=== PATIENT | female | born 1980 | race Caucasian/White ===

== ENCOUNTER → 2017-12-05 | Outpatient (CLI) | payer BC ==
[~2017-12-05] MED LIST: METR500T PO; PREN-153 OR; SUMA100T2 PO
[2017-12-05 11:29] LABS: Basophils # (auto) 0 uL; Basophils % (auto) 0.4 % (0.0-2.0); Eosinophils # (auto) 0 uL; Eosinophils % (auto) 0.8 % (0.0-7.0); Hematocrit 43.4 % (36.0-46.0); Hemoglobin 14.5 g/dL (12.2-16.2); Lymphocytes # (auto) 2.1 uL; Lymphocytes % (auto) 35.7 % (10.0-50.0); Mean Corpuscular Hemoglobin 30.4 pg (28.0-32.0); Mean Corpuscular Hgb Conc. 33.3 g/dL (32.0-36.0); Mean Corpuscular Volume 91.3 fL (80.0-100.0); Monocytes # (auto) 0.3 uL; Monocytes % (auto) 5.1 % (0.0-12.0); Neutrophils # (auto) 3.5 uL; Platelet Count (auto) 319 10^3/uL (140-450); Red Blood Cells 4.75 10^6/uL (4.0-5.20); Red Cell Distribution Width 12.4 % (11.8-14.3)
[2017-12-05 12:33] LABS: BUN/Creatinine Ratio 22.9; Bilirubin, Total 0.9 mg/dL (0.2-1.0); Potassium 4.4 mmol/L (3.5-5.1); Total Protein 7.7 g/dL (6.4-8.2)
[2017-12-05 12:36] LABS: Beta HCG, Quantitative < 1 mlU/mL (1-3); Thyroid Stimulating Hormone 1.43 uIU/mL (0.358-3.74)
== END | disposition home or self-care (01) ==
LOC: LAB 09:56
PROVIDERS: ATTEND Internal Medicine
DX: Z00.01 Encounter for general adult medical examination with abnormal findings (principal); R73.09 Other abnormal glucose
CPT/HCPCS: 36415; 80053; 80061; 82306; 83036; 84443; 84702; 85025

== ENCOUNTER 2018-06-16 04:51 | Emergency (ER) | payer BC ==
[~2018-06-16] VITALS: Ht 157.5 cm; Wt 68.0 kg
[2018-06-16] MEDS ORDERED: ONDANSETRON HCL 4 MG/2 ML VIAL ONE (05:15)
[2018-06-16] MEDS ORDERED: SODIUM CHLORIDE 0.9% 1,000 ML IV ONE (05:15)
[2018-06-16] MEDS ORDERED: ONDANSETRON HCL 4 MG/2 ML VIAL IV ONE (05:15)
[2018-06-16] MEDS ORDERED: DIPHENOXYLATE W/ATROPINE 2.5 MG TAB PO ONE ×2 (05:45→07:45)
[2018-06-16 05:49] LABS: Basophils # (auto) 0 uL; Basophils % (auto) 0.2 % (0.0-2.0); Eosinophils # (auto) 0.3 uL; Eosinophils % (auto) 3.3 % (0.0-7.0); Hematocrit 41.7 % (36.0-46.0); Hemoglobin 13.9 g/dL (12.2-16.2); Lymphocytes # (auto) 1.9 uL; Lymphocytes % (auto) 23.1 % (10.0-50.0); Mean Corpuscular Hemoglobin 30.7 pg (28.0-32.0); Mean Corpuscular Hgb Conc. 33.3 g/dL (32.0-36.0); Mean Corpuscular Volume 92.2 fL (80.0-100.0); Monocytes # (auto) 0.6 uL; Monocytes % (auto) 7.6 % (0.0-12.0); Neutrophils # (auto) 5.3 uL; Neutrophils % (auto) 65.8 % (37.0-80.0); Nucleated Red Blood Cells % 0.1 %; Platelet Count (auto) 301 10^3/uL (140-450); Red Blood Cells 4.52 10^6/uL (4.0-5.20); Red Cell Distribution Width 12.3 % (11.8-14.3); White Blood Cell 8.1 10^3/uL (4.4-10.8)
[2018-06-16 05:57] LABS: Calcium 8.4 mg/dL (8.5-10.1); Magnesium 2.3 mg/dL (1.6-2.6); Potassium 3.8 mmol/L (3.5-5.1)
[2018-06-16 06:03] LABS: Bilirubin, Total 0.7 mg/dL (0.2-1.0); INR 0.88 (0.9-1.15); Prothrombin Time 9.5 sec (9.27-12.13); Total Protein 7.6 g/dL (6.4-8.2)
[2018-06-16 06:11] LABS: Urine Bacteria FEW /hpf (None Seen); Urine Blood Negative /uL (Negative); Urine Mucus FEW (None Seen); Urine Specific Gravity 1.027 (1.001-1.035); Urine WBC 1 /hpf (0 - 5)
[2018-06-16 08:30] VITALS: BP 105/72
== END 2018-06-16 08:45 | disposition home or self-care (01) ==
LOC: ER 04:51
DX: K52.9 Noninfective gastroenteritis and colitis, unspecified (principal); Z88.6 Allergy status to analgesic agent
CPT/HCPCS: 36415; 74176; 80053; 81001; 81025; 82150; 83690; 83735; 85025; 85610; 85730; 96361; 96374; 99284; J2405; J7030

== ENCOUNTER 2019-01-26 08:04 | Emergency (ER) | payer BC ==
[~2019-01-26] VITALS: Ht 157.5 cm; Wt 74.8 kg
[2019-01-26] MEDS ORDERED: KETOROLAC TROMETH 30 MG/ML 1ML VIAL IV ONE (09:00)
[2019-01-26] MEDS ORDERED: SODIUM CHLORIDE 0.9% 1,000 ML IV ONE (09:00)
[2019-01-26] MEDS ORDERED: diphenhdrAMINE HCL 50 MG/1 ML VL IV ONE (09:00)
[2019-01-26] MEDS ORDERED: METOCLOPRAMIDE HCL 5MG/ml INJ 2ml VIAL IV ONE (09:00)
[2019-01-26 10:17] VITALS: BP 100/58
== END 2019-01-26 10:20 | disposition home or self-care (01) ==
LOC: ER 08:04
DX: G43.909 Migraine, unspecified, not intractable, without status migrainosus (principal); R11.2 Nausea with vomiting, unspecified; R42 Dizziness and giddiness
CPT/HCPCS: 96361; 96374; 96375; 99283; J1200; J1885; J2765; J7030

== ENCOUNTER 2019-02-05 05:54 | Emergency (ER) | payer BC ==
[~2019-02-05] VITALS: Ht 157.5 cm; Wt 68.0 kg
[2019-02-05 06:15] VITALS: BP 116/68
[2019-02-05 06:26] LABS: Urine Bacteria MOD /hpf (None Seen); Urine Blood 2+ /uL (Negative); Urine Specific Gravity 1.017 (1.001-1.035); Urine WBC 348 /hpf (0 - 5)
[2019-02-05] MEDS ORDERED: PHENAZOPYRIDINE HCL 100 MG TAB PO ONE (07:15)
[2019-02-05] MEDS ORDERED: cefTRIAXone SOD 1,000 MG VL IM ONE (07:15)
== END 2019-02-05 07:56 | disposition home or self-care (01) ==
LOC: ER 05:54
DX: N39.0 Urinary tract infection, site not specified (principal); Z88.8 Allergy status to other drugs, medicaments and biological substances
CPT/HCPCS: 81001; 96372; 99283; J0696

== ENCOUNTER 2019-03-26 14:58 | Inpatient (IN) | payer BC ==
[~2019-03-26] VITALS: Ht 157.5 cm; Wt 87.3 kg
[2019-03-26] MEDS ORDERED: PANTOPRAZOLE 40 MG TAB PO ONE (15:15)
[2019-03-26] MEDS ORDERED: ONDANSETRON ODT 4 MG TAB PO ONE (15:15)
[2019-03-26 15:44] LABS: Partial Thromboplastin Time 22.4 sec (23.64-32.05)
[2019-03-26 15:45] LABS: Basophils # (auto) 0.1 uL; Basophils % (auto) 0.6 % (0.0-2.0); Eosinophils # (auto) 0 uL; Eosinophils % (auto) 0.1 % (0.0-7.0); Hematocrit 40.7 % (36.0-46.0); Hemoglobin 13.3 g/dL (12.2-16.2); Lymphocytes # (auto) 2.2 uL; Lymphocytes % (auto) 14.7 % (10.0-50.0); Mean Corpuscular Hemoglobin 30.3 pg (28.0-32.0); Mean Corpuscular Hgb Conc. 32.7 g/dL (32.0-36.0); Mean Corpuscular Volume 92.5 fL (80.0-100.0); Monocytes # (auto) 0.6 uL; Monocytes % (auto) 4.1 % (0.0-12.0); Neutrophils # (auto) 12.1 uL; Neutrophils % (auto) 80.5 % (37.0-80.0); Nucleated Red Blood Cells % 0.1 %; Platelet Count (auto) 351 10^3/uL (140-450); Red Cell Distribution Width 12.3 % (11.8-14.3)
[2019-03-26 15:51] LABS: Anion Gap 7 (5-15); Blood Urea Nitrogen 35 mg/dL (7-18); Carbon Dioxide 21 mmol/L (21-32); Chloride 110 mmol/L (98-107); Glucose 103 mg/dL (74-106); Potassium 4.5 mmol/L (3.5-5.1); Sodium 138 mmol/L (136-145)
[2019-03-26 15:58] LABS: Alanine Aminotransferase 27 U/L (13-56); Alkaline Phosphatase 69 U/L (45-117); Aspartate Aminotransferase 12 U/L (15-37); BUN/Creatinine Ratio 48.6; Bilirubin, Total 1.1 mg/dL (0.2-1.0); GFR African American 118 mL/min; GFR Non-African American 97 mL/min; Total Protein 7.4 g/dL (6.4-8.2)
[2019-03-26] MEDS ORDERED: ONDANSETRON HCL 4 MG/2 ML VIAL IV ONE (16:00)
[2019-03-26] MEDS ORDERED: PANTOPRAZOLE 40 MG/10 ML VIAL INJ IV ONE ×2 (16:00→19:00)
[2019-03-26] MEDS ORDERED: cefTRIAXone 1GM/50ML D5W 50 ML IV ONE (16:15)
[2019-03-26] MEDS ORDERED: SODIUM CHLORIDE 0.9% 1,000 ML IV ONE ×2 (16:26)
[2019-03-26 16:36] LABS: Urine Bacteria NONE SEEN /hpf (None Seen); Urine Blood Negative /uL (Negative); Urine Mucus FEW (None Seen); Urine Specific Gravity 1.024 (1.001-1.035); Urine WBC 1 /hpf (0 - 5)
[2019-03-26] MEDS ORDERED: PANTOPRAZOLE 80 MG in SODIUM CHL 0.9% 60 ML IV ONE (18:15)
[2019-03-26] MEDS ORDERED: TEMAZEPAM 15 MG CAP PO PRN (19:00)
[2019-03-26] MEDS ORDERED: PROMETHAZINE HCL 25 MG/ML 1ML IV PRN (19:00)
[2019-03-26] MEDS ORDERED: MORPHINE SULF INJ 2 MG/ML SYRINGE 1ML IV PRN (19:00)
[2019-03-26] MEDS ORDERED: NITROGLYCERIN 0.4 MG SL TAB SL PRN (19:00)
[2019-03-26] MEDS: SODIUM CHLORIDE 0.9% 1,000 ML IV SCH (19:48)
--- NOTE | 2019-03-26 20:52 | NUR ---
Telemetry admit from ER ROONEYSHAE CLARKE admitted to Telemetry unit. Patient oriented to AMY CHONG RN primary RN, unit, room, bed, and unit policies regarding patient care and visiting hours. Patient now on continuous telemetry monitoring, tele box #50 and telemetry reading on arrival to unit is sinus tachycardia. Patient weighed by bedscale and encouraged to call if they need something. All questions and concerns addressed, patient verbalized understanding. Will continue to monitor every hour and as needed.
[2019-03-26 21:22] VITALS: BP 116/76
[2019-03-26] MEDS ORDERED: PANTOPRAZOLE 40 MG TAB PO SCH (22:00)
[2019-03-26] MEDS: CEFOTETAN 1GM/D5W 50ML BAG 50 ML IV SCH (22:19)
[2019-03-27 00:38] LABS: Hematocrit 29.9 % (36.0-46.0); Hemoglobin 10.5 g/dL (12.2-16.2)
[2019-03-27] MEDS: ACETAMINOPHEN 500 MG TAB PO PRN ×2 (04:48→21:42)
[2019-03-27 05:21] VITALS: BP 111/66
[2019-03-27 05:38] LABS: Basophils # (auto) 0 uL; Basophils % (auto) 0.2 % (0.0-2.0); Eosinophils # (auto) 0 uL; Eosinophils % (auto) 0.5 % (0.0-7.0); Hematocrit 30.5 % (36.0-46.0); Hemoglobin 10.3 g/dL (12.2-16.2); Lymphocytes # (auto) 2.1 uL; Lymphocytes % (auto) 26.4 % (10.0-50.0); Mean Corpuscular Hemoglobin 31.3 pg (28.0-32.0); Monocytes # (auto) 0.5 uL; Monocytes % (auto) 6.1 % (0.0-12.0); Neutrophils # (auto) 5.4 uL; Neutrophils % (auto) 66.8 % (37.0-80.0); Nucleated Red Blood Cells % 0.1 %; Platelet Count (auto) 244 10^3/uL (140-450); Red Blood Cells 3.31 10^6/uL (4.0-5.20); Red Cell Distribution Width 12.3 % (11.8-14.3); White Blood Cell 8.1 10^3/uL (4.4-10.8)
[2019-03-27] MEDS: SODIUM CHLORIDE 0.9% 1,000 ML IV SCH ×3 (05:40→22:30)
--- NOTE | 2019-03-27 07:44 | NUR ---
Opening Shift Note: Assumed care of patient, awake and alert. No S/S of distress/SOB. Patient states pain level of 4/10. Bed in lowest locked position, side rails up x 2, call light within reach. Patient independently ambulated to the bathroom at this time. Patient instructed on POC and to call for assist PRN, will continue to monitor for changes Q1hr and PRN.
[2019-03-27 08:28] VITALS: BP 103/66
[2019-03-27] MEDS: CEFOTETAN 1GM/D5W 50ML BAG 50 ML IV SCH (09:51)
[2019-03-27] MEDS: traMADol HCL 50 MG TAB PO PRN ×2 (09:56→20:24)
--- NOTE | 2019-03-27 11:17 | NUR ---
Dr. Pope at bedside. Discussed POC with patient. Patient verbally agreed.
--- NOTE | 2019-03-27 12:01 | NUR ---
Orders to obtain consents for procedure with Dr. Pope. Patient signed and verbalized understanding of procedure. Will continue to monitor patient.
[2019-03-27 12:06] LABS: Hematocrit 30.5 % (36.0-46.0); Hemoglobin 10.3 g/dL (12.2-16.2)
--- NOTE | 2019-03-27 12:20 | NUR ---
Dr. Randle at bedside. Discussed POC with patient. Patient verbally agreed. Will continue to monitor.
[2019-03-27] MEDS ORDERED: LIDOCAINE VISCOUS 2% 15ML UD ONE (12:31)
[2019-03-27] MEDS ORDERED: SODIUM CHLORIDE LOCK 0 ML ONE (12:31)
[2019-03-27] MEDS ORDERED: diphenhdrAMINE HCL 50 MG/1 ML VL ONE (12:32)
[2019-03-27] MEDS ORDERED: FLUMAZENIL 0.1 MG/ML INJ 10ML MDV IV ONE (12:39)
[2019-03-27] MEDS ORDERED: NALOXONE HCL 0.4 MG/ML VIAL ONE (12:39)
--- NOTE | 2019-03-27 13:30 | NUR ---
Patient off unit for procedure.
[2019-03-27] MEDS: MIDAZOLAM HCL 5 MG/ML-1ML VIAL ONE ×2 (13:47→13:50)
[2019-03-27] MEDS: fentaNYL CITRATE 100 MCG/2 ML VL ONE ×2 (13:47→13:50)
--- NOTE | 2019-03-27 14:42 | NUR ---
Patient back to room after procedure.
[2019-03-27 17:00] VITALS: BP 106/58
--- NOTE | 2019-03-27 19:27 | NUR ---
Closing note: Patient laying in bed. No S/S of distress, Pain or SOB at this time. care endorsed to NOC BRANDY Giang.
[2019-03-27 20:00] VITALS: BP 113/51
--- NOTE | 2019-03-27 20:15 | NUR ---
Opening Shift Note Assumed care of patient, awake and alert. No S/S of distress/SOB or pain. Instructed on POC and to call for assistance PRN, will continue to monitor for changes Q1hr and PRN. Instructed patient to notify RN of next bm for stool collection, hat and cup placed in bathroom.
--- NOTE | 2019-03-27 20:24 | NUR ---
Pain Pt medicated for c/o headache pain, medicated with ultram. Will monitor pain relief.
[2019-03-27 21:24] VITALS: BP 113/51
[2019-03-27] MEDS: PANTOPRAZOLE 40 MG TAB PO SCH (21:42)
[2019-03-27 22:00] VITALS: BP 113/51
--- NOTE | 2019-03-28 00:03 | NUR ---
Rounds Patient sleeping, respirations even and unlabored. No S/S of distress/SOB or pain. Will continue to monitor changes q1hr and PRN. IVF running at 100ml/hr Call light within reach
--- NOTE | 2019-03-28 01:04 | NUR ---
Stool occult blood Collected and bulleted to lab, small dark tarry stool
[2019-03-28] MEDS: SODIUM CHLORIDE 0.9% 1,000 ML IV SCH ×2 (02:22→17:52)
[2019-03-28] MEDS: traMADol HCL 50 MG TAB PO PRN ×3 (02:23→21:07)
[2019-03-28 05:11] VITALS: BP 101/58
[2019-03-28 05:44] LABS: Basophils # (auto) 0 uL; Basophils % (auto) 0.3 % (0.0-2.0); Eosinophils # (auto) 0.1 uL; Eosinophils % (auto) 1.1 % (0.0-7.0); Hematocrit 27.5 % (36.0-46.0); Hemoglobin 9.3 g/dL (12.2-16.2); Lymphocytes # (auto) 1.7 uL; Lymphocytes % (auto) 33.6 % (10.0-50.0); Mean Corpuscular Hemoglobin 31.2 pg (28.0-32.0); Mean Corpuscular Hgb Conc. 33.8 g/dL (32.0-36.0); Mean Corpuscular Volume 92.2 fL (80.0-100.0); Monocytes # (auto) 0.4 uL; Monocytes % (auto) 7.9 % (0.0-12.0); Neutrophils # (auto) 2.9 uL; Neutrophils % (auto) 57.1 % (37.0-80.0); Platelet Count (auto) 211 10^3/uL (140-450); Red Blood Cells 2.99 10^6/uL (4.0-5.20); Red Cell Distribution Width 12.5 % (11.8-14.3); White Blood Cell 5.1 10^3/uL (4.4-10.8)
[2019-03-28 05:59] LABS: BUN/Creatinine Ratio 15.6; Calcium 7.5 mg/dL (8.5-10.1)
--- NOTE | 2019-03-28 07:47 | NUR ---
Opening Shift Note: Assumed care of patient, awake and alert. No S/S of distress/SOB. Patient states pain 3/10, per patient "my pain is mild, better than yesterday." Bed in lowest locked position, side rails up x2, call light within reach. Patient instructed on POC and to call for assist PRN, will continue to monitor for changes Q1hr and PRN.
[2019-03-28 08:59] VITALS: BP 116/67
[2019-03-28] MEDS: PANTOPRAZOLE 40 MG TAB PO SCH ×2 (09:35→21:54)
[2019-03-28] MEDS ORDERED: PANTOPRAZOLE 40 MG/10 ML VIAL INJ IV SCH (10:00)
[2019-03-28 11:53] LABS: Hematocrit 28.5 % (36.0-46.0); Hemoglobin 9.6 g/dL (12.2-16.2)
[2019-03-28 12:56] VITALS: BP 109/59
--- NOTE | 2019-03-28 14:20 | NUR ---
IV insertion: IV access obtained, via clean sterile technique by inserting 20 gauge catheter at right hand after 2 attempts. IV secured properly. No trauma to site. Patient tolerated well. IV removal: IV DC'd with clean sterile technique, catheter fully intact. Pressure dressing applied to site. Patient tolerated well.
[2019-03-28] MEDS: ACETAMINOPHEN 500 MG TAB PO PRN (16:12)
[2019-03-28 17:00] VITALS: BP 121/77
[2019-03-28 17:42] LABS: Hematocrit 30.4 % (36.0-46.0); Hemoglobin 10.2 g/dL (12.2-16.2)
--- NOTE | 2019-03-28 18:03 | NUR ---
Right hand IV began to leak. IV insertion: IV access obtained, via clean sterile technique by inserting 20 gauge catheter at right forearm after 1 attempt. IV secured properly. No trauma to site. Patient tolerated well. IV removal: IV DC'd with clean sterile technique, catheter fully intact. Pressure dressing applied to site. Patient tolerated well.
--- NOTE | 2019-03-28 19:24 | NUR ---
Closing note: Patient laying in bed. No S/S of SOB or distress at this time. Care endorsed to NOC BRANDY Soto.
--- NOTE | 2019-03-28 19:30 | NUR ---
Opening shift note Assumed care of patient, who is A&O x4. Currently on RA with no s/s of SOB or distress. Reports 10/ headache. States that current pain management options have been unsuccessful. Reports taking Imitrex 100mg daily at home. Will request orders from Hospitalist. Patient is ambulatory without the use of assistive devices. IV fluids infusing as ordered. IV in right forearms is CDI, no s/s of infiltration or irritation. Medications and POC discussed with patient and significant other, who is at the bedside. Both verbalize understanding. Bed is in low locked position with side rails up x2. Call light is within reach and patient is encouraged to call for assistance when needed. Will continue to monitor for changes PRN.
[2019-03-28 20:00] VITALS: BP 126/85
[2019-03-28 22:00] VITALS: BP 126/85
--- NOTE | 2019-03-28 22:00 | NUR ---
Hospitalist paged to request orders for migraine headaches not responding to current pain medications ordered. Awaiting call back.
--- NOTE | 2019-03-28 22:15 | NUR ---
Received call back from Perico Erickson NP. New orders received and will be carried out.
[2019-03-28] MEDS: SUMAtriptan SUCCINATE 25 MG TAB PO SCH (22:50)
[2019-03-28 22:54] LABS: Hematocrit 29.6 % (36.0-46.0); Hemoglobin 10.1 g/dL (12.2-16.2)
[2019-03-29] MEDS: SODIUM CHLORIDE 0.9% 1,000 ML IV SCH (04:27)
[2019-03-29 05:00] VITALS: BP 99/59
[2019-03-29 09:00] VITALS: BP 121/80
[2019-03-29] MEDS: PANTOPRAZOLE 40 MG TAB PO SCH (09:15)
[2019-03-29] MEDS: SUMAtriptan SUCCINATE 25 MG TAB PO SCH (09:16)
[2019-03-29 13:00] VITALS: BP 117/81
--- NOTE | 2019-03-29 14:41 | NUR ---
Discharge Went over discharge paperwork with patient. Gave her prescription. She asked about an order for missing work as well as results of biopsy. This nurse called Dr. Randle who said he would give her the work note tomorrow and that the biopsy results would not be back until next week. Removed IV. Removed telemetry and sent to ICU. Patient left in friend's private vehicle with all personal belongings.
== END 2019-03-29 14:30 | disposition home or self-care (01) | DRG 379 ==
LOC: ER 14:58 → EEVIPCON 14:58 → TELE 14:59 → TELE-WESTW 20:54
PROVIDERS: ADMIT Internal Medicine; ATTEND Internal Medicine
PROC: 0DB68ZX Excision of Stomach, Via Natural or Artificial Opening Endoscopic, Diagnostic (ICD-10-PCS; principal; 2019-03-27 13:38)
DX: K29.71 Gastritis, unspecified, with bleeding (principal); G43.909 Migraine, unspecified, not intractable, without status migrainosus; K25.4 Chronic or unspecified gastric ulcer with hemorrhage; E66.9 Obesity, unspecified; K21.9 Gastro-esophageal reflux disease without esophagitis; D72.829 Elevated white blood cell count, unspecified; Z82.49 Family history of ischemic heart disease and other diseases of the circulatory system; Z88.8 Allergy status to other drugs, medicaments and biological substances; Z86.19 Personal history of other infectious and parasitic diseases; Z83.3 Family history of diabetes mellitus; Z68.35 Body mass index [BMI] 35.0-35.9, adult
CPT/HCPCS: 36415; 71046; 71250; 74176; 80048; 80053; 81001; 82150; 82270; 83690; 84484; 84702; 85014; 85018; 85025; 85045; 85610; 85730; 86677; 93005; 99291; C9113; G0378; J0696; J2250; J2405

== ENCOUNTER → 2019-11-11 | Outpatient (CLI) | payer OTHER ==
[~2019-11-11] MED LIST changes: -PREN-153 OR
== END | disposition home or self-care (01) ==
LOC: LAB 07:25
PROVIDERS: ATTEND Nurse Practitioner Family
DX: Z20.828 Contact with and (suspected) exposure to other viral communicable diseases (principal)

== ENCOUNTER → 2019-11-25 | Outpatient (CLI) | payer OTHER | END | disposition home or self-care (01) | LOC: LAB 15:36 | PROVIDERS: ATTEND Nurse Practitioner Family | DX: Z20.828 Contact with and (suspected) exposure to other viral communicable diseases (principal) ==

== ENCOUNTER 2019-11-29 08:57 | Emergency (ER) | payer BC, OTHER ==
[~2019-11-29] VITALS: Ht 157.5 cm; Wt 68.0 kg
[2019-11-29 09:09] VITALS: BP 134/94
[2019-11-29 09:24] LABS: Basophils # (auto) 0.1 10 ^3/uL (0-0.2); Eosinophils # (auto) 0.3 10 ^3/uL (0-0.8); Eosinophils % (auto) 3.3 % (0.0-7.0); Hematocrit 45.5 % (36.0-46.0); Hemoglobin 14.7 g/dL (12.2-16.2); Lymphocytes # (auto) 1.8 10 ^3/uL (0.4-5.4); Lymphocytes % (auto) 22.9 % (10.0-50.0); Mean Corpuscular Hemoglobin 28.7 pg (28.0-32.0); Mean Corpuscular Hgb Conc. 32.2 g/dL (32.0-36.0); Monocytes # (auto) 0.4 10 ^3/uL (0-1.3); Monocytes % (auto) 5.4 % (0.0-12.0); Neutrophils # (auto) 5.4 10 ^3/uL (1.6-8.6); Neutrophils % (auto) 67.4 % (37.0-80.0); Platelet Count (auto) 326 10^3/uL (140-450); Red Blood Cells 5.11 10^6/uL (4.0-5.20); Red Cell Distribution Width 12.4 % (11.8-14.3)
[2019-11-29 09:29] LABS: Urine Bacteria MANY /hpf (None Seen); Urine Blood Negative /uL (Negative); Urine Specific Gravity 1.017 (1.001-1.035); Urine WBC 1 /hpf (0 - 5)
[2019-11-29 09:43] LABS: Albumin 4.1 g/dL (3.4-5.0); Calcium 9.3 mg/dL (8.5-10.1); Potassium 4.2 mmol/L (3.5-5.1)
[2019-11-29 09:46] LABS: BUN/Creatinine Ratio 15.5; Bilirubin, Total 0.8 mg/dL (0.2-1.0); Total Protein 7.9 g/dL (6.4-8.2)
== END 2019-11-29 11:15 | disposition home or self-care (01) ==
LOC: ER 08:57 → EEVIPCON 08:57 → ER 11:15
DX: K29.00 Acute gastritis without bleeding (principal); R10.9 Unspecified abdominal pain; K21.9 Gastro-esophageal reflux disease without esophagitis; Z79.899 Other long term (current) drug therapy
CPT/HCPCS: 36415; 74176; 80053; 81001; 84702; 85025

== ENCOUNTER → 2020-02-01 | Day surgery (SDC) | payer BC ==
[2020-01-27 14:52] LABS: INR 0.92 (0.9-1.15); Partial Thromboplastin Time 25.3 sec (23.0-31.2)
[2020-01-27 15:25] LABS: Basophils # (auto) 0 10 ^3/uL (0-0.2); Basophils % (auto) 0.4 % (0.0-2.0); Eosinophils # (auto) 0.1 10 ^3/uL (0-0.8); Eosinophils % (auto) 1.9 % (0.0-7.0); Hematocrit 43.1 % (36.0-46.0); Hemoglobin 14.6 g/dL (12.2-16.2); Lymphocytes # (auto) 2.2 10 ^3/uL (0.4-5.4); Lymphocytes % (auto) 31.2 % (10.0-50.0); Mean Corpuscular Hgb Conc. 33.8 g/dL (32.0-36.0); Mean Corpuscular Volume 88.6 fL (80.0-100.0); Monocytes # (auto) 0.5 10 ^3/uL (0-1.3); Monocytes % (auto) 7.5 % (0.0-12.0); Neutrophils # (auto) 4.1 10 ^3/uL (1.6-8.6); Nucleated Red Blood Cells % 0.1 %; Platelet Count (auto) 352 10^3/uL (140-450); Red Blood Cells 4.86 10^6/uL (4.0-5.20); Red Cell Distribution Width 13.1 % (11.8-14.3); White Blood Cell 6.9 10^3/uL (4.4-10.8)
[~2020-02-01] VITALS: Ht 157.5 cm; Wt 81.6 kg
[~2020-02-01] MED LIST changes: +LIDOCAINE VISCOUS 2% 15ML UD ONE; -METR500T PO; +PANT40TA2 PO; +SODIUM CHLORIDE LOCK 10 ML ONE
[2020-02-01] MEDS: diphenhdrAMINE HCL 50 MG/1 ML VL ONE ×2 (09:42→09:45)
[2020-02-01] MEDS: MIDAZOLAM HCL 5 MG/ML-1ML VIAL ONE ×3 (09:42→09:51)
[2020-02-01] MEDS: fentaNYL CITRATE 100 MCG/2 ML VL ONE ×3 (09:42→09:51)
[2020-02-01 10:26] VITALS: BP 106/75
== END | disposition home or self-care (01) ==
LOC: GI 08:47
PROVIDERS: ATTEND Internal Medicine Gastroenterology
DX: R10.9 Unspecified abdominal pain (principal); K22.10 Ulcer of esophagus without bleeding; K29.50 Unspecified chronic gastritis without bleeding; K21.9 Gastro-esophageal reflux disease without esophagitis; K27.9 Peptic ulcer, site unspecified, unspecified as acute or chronic, without hemorrhage or perforation; E66.9 Obesity, unspecified; Z88.8 Allergy status to other drugs, medicaments and biological substances; Z68.32 Body mass index [BMI] 32.0-32.9, adult; Z79.899 Other long term (current) drug therapy; Z20.828 Contact with and (suspected) exposure to other viral communicable diseases
CPT/HCPCS: 36415; 43239; 43245; 84702; 85025; 85610; 85730; 88305; 88342; C1726; J1200; J2250; J3010; J7030; U0003; 99152

== ENCOUNTER → 2020-05-17 | Day surgery (SDC) | payer BC ==
[2020-05-12 09:24] LABS: Basophils # (auto) 0 10 ^3/uL (0-0.2); Basophils % (auto) 0.6 % (0.0-2.0); Eosinophils # (auto) 0.1 10 ^3/uL (0-0.8); Eosinophils % (auto) 2.2 % (0.0-7.0); Hematocrit 41.7 % (36.0-46.0); Hemoglobin 14.2 g/dL (12.2-16.2); Lymphocytes # (auto) 1.8 10 ^3/uL (0.4-5.4); Lymphocytes % (auto) 33.1 % (10.0-50.0); Mean Corpuscular Hemoglobin 30.8 pg (28.0-32.0); Mean Corpuscular Hgb Conc. 34.1 g/dL (32.0-36.0); Mean Corpuscular Volume 90.4 fL (80.0-100.0); Monocytes # (auto) 0.4 10 ^3/uL (0-1.3); Monocytes % (auto) 8.3 % (0.0-12.0); Neutrophils % (auto) 55.8 % (37.0-80.0); Platelet Count (auto) 312 10^3/uL (140-450); Red Blood Cells 4.61 10^6/uL (4.0-5.20); Red Cell Distribution Width 12.5 % (11.8-14.3); White Blood Cell 5.4 10^3/uL (4.4-10.8)
[2020-05-12 09:45] LABS: INR 0.95 (0.9-1.15); Partial Thromboplastin Time 25.1 sec (23.0-31.2)
[~2020-05-17] VITALS: Ht 157.5 cm; Wt 81.6 kg
[~2020-05-17] MED LIST changes: -SODIUM CHLORIDE LOCK 10 ML ONE
[2020-05-17] MEDS: MIDAZOLAM HCL 5 MG/ML-1ML VIAL ONE ×3 (13:58→14:04)
[2020-05-17] MEDS: fentaNYL CITRATE 100 MCG/2 ML VL ONE ×2 (13:58→14:01)
[2020-05-17] MEDS: diphenhdrAMINE HCL 50 MG/1 ML VL ONE ×2 (13:58→14:01)
[2020-05-17 14:44] VITALS: BP 109/68
== END | disposition home or self-care (01) ==
LOC: GI 12:32
PROVIDERS: ATTEND Internal Medicine Gastroenterology
DX: K31.84 Gastroparesis (principal); K29.50 Unspecified chronic gastritis without bleeding; K31.1 Adult hypertrophic pyloric stenosis; K21.9 Gastro-esophageal reflux disease without esophagitis; K27.9 Peptic ulcer, site unspecified, unspecified as acute or chronic, without hemorrhage or perforation; E66.9 Obesity, unspecified; Z68.32 Body mass index [BMI] 32.0-32.9, adult; Z20.822 Contact with and (suspected) exposure to COVID-19; Z98.890 Other specified postprocedural states; Z79.899 Other long term (current) drug therapy; Z88.8 Allergy status to other drugs, medicaments and biological substances
CPT/HCPCS: 36415; 43213; 43239; 43249; 81025; 85025; 85610; 85730; 88305; 88342; C1726; J1200; J2250; J3010; J7030; U0003; 99152

== ENCOUNTER → 2020-08-15 | Outpatient (CLI) | payer BC ==
[~2020-08-15] MED LIST changes: -LIDOCAINE VISCOUS 2% 15ML UD ONE
== END | disposition home or self-care (01) ==
LOC: LAB 13:50
PROVIDERS: ATTEND Internal Medicine Gastroenterology
DX: R19.7 Diarrhea, unspecified (principal); R10.9 Unspecified abdominal pain
CPT/HCPCS: 82784; 83516; 86255

== ENCOUNTER 2020-08-19 02:34 | Emergency (ER) | payer BC ==
[~2020-08-19] VITALS: Ht 157.5 cm; Wt 74.8 kg
[2020-08-19 03:20] LABS: Urine Bacteria FEW /hpf (None Seen); Urine Blood Negative /uL (Negative); Urine Hyaline Cast FEW /lpf (0 - 2); Urine Mucus FEW (None Seen); Urine Specific Gravity 1.025 (1.001-1.035); Urine WBC 5 /hpf (0 - 5)
[2020-08-19 03:34] LABS: Basophils # (auto) 0.1 10 ^3/uL (0-0.2); Basophils % (auto) 1.5 % (0.0-2.0); Eosinophils # (auto) 0.3 10 ^3/uL (0-0.8); Eosinophils % (auto) 4.2 % (0.0-7.0); Hematocrit 42.8 % (36.0-46.0); Hemoglobin 14.6 g/dL (12.2-16.2); Lymphocytes % (auto) 29.7 % (10.0-50.0); Mean Corpuscular Hemoglobin 30.5 pg (28.0-32.0); Mean Corpuscular Volume 89.7 fL (80.0-100.0); Monocytes # (auto) 0.5 10 ^3/uL (0-1.3); Monocytes % (auto) 6.8 % (0.0-12.0); Neutrophils # (auto) 3.9 10 ^3/uL (1.6-8.6); Neutrophils % (auto) 57.8 % (37.0-80.0); Nucleated Red Blood Cells % 0.1 %; Red Blood Cells 4.77 10^6/uL (4.0-5.20); Red Cell Distribution Width 11.9 % (11.8-14.3); White Blood Cell 6.8 10^3/uL (4.4-10.8)
[2020-08-19 03:46] LABS: Albumin 3.9 g/dL (3.4-5.0); BUN/Creatinine Ratio 16.4; Calcium 9.4 mg/dL (8.5-10.1); Magnesium 2.1 mg/dL (1.6-2.6); Potassium 4.2 mmol/L (3.5-5.1)
[2020-08-19 03:49] LABS: Bilirubin, Total 0.8 mg/dL (0.2-1.0); Total Protein 7.3 g/dL (6.4-8.2)
[2020-08-19] MEDS ORDERED: KETOROLAC TROMETH 30 MG/ML 1ML VIAL IV ONE (04:00)
[2020-08-19] MEDS ORDERED: fentaNYL CITRATE 100 MCG/2 ML VL IV ONE (04:00)
[2020-08-19] MEDS ORDERED: ONDANSETRON HCL 4 MG/2 ML VIAL IV ONE ×2 (04:00→05:45)
[2020-08-19] MEDS ORDERED: METOCLOPRAMIDE HCL 5MG/ml INJ 2ml VIAL IV ONE (08:00)
[2020-08-19 10:26] VITALS: BP 120/73
[2020-08-19 10:59] LABS: Urine Bacteria FEW /hpf (None Seen); Urine Blood Negative /uL (Negative); Urine Mucus FEW (None Seen); Urine Specific Gravity 1.017 (1.001-1.035); Urine WBC 17 /hpf (0 - 5)
[2021-01-22] MEDS ORDERED: FAMO20TA10 PO (16:21)
== END 2020-08-19 10:29 | disposition home or self-care (01) ==
LOC: EEVIPCON 02:34 → ER 02:34
DX: R10.30 Lower abdominal pain, unspecified (principal); R11.2 Nausea with vomiting, unspecified; R19.7 Diarrhea, unspecified; K21.9 Gastro-esophageal reflux disease without esophagitis; Z88.3 Allergy status to other anti-infective agents; Z79.899 Other long term (current) drug therapy
CPT/HCPCS: 36415; 74176; 80053; 81001; 82150; 83690; 83735; 84702; 85025; 96374; 96375; 96376; 99285; J1885; J2405; J3010

== ENCOUNTER → 2020-10-05 | Outpatient (CLI) | payer BC | END | disposition home or self-care (01) | LOC: LAB 07:15 | PROVIDERS: ATTEND Nurse Practitioner Family | DX: N39.0 Urinary tract infection, site not specified (principal); R30.0 Dysuria | CPT/HCPCS: 87086 ==

== ENCOUNTER 2021-01-25 08:17 | Day surgery (SDC) | payer BC ==
[2021-01-22 13:01] LABS: Basophils # (auto) 0 10 ^3/uL (0-0.2); Basophils % (auto) 0.6 % (0.0-2.0); Eosinophils # (auto) 0.3 10 ^3/uL (0-0.8); Eosinophils % (auto) 4.6 % (0.0-7.0); Hematocrit 41.8 % (36.0-46.0); Hemoglobin 13.7 g/dL (12.2-16.2); Lymphocytes # (auto) 2.2 10 ^3/uL (0.4-5.4); Mean Corpuscular Hemoglobin 30.3 pg (28.0-32.0); Mean Corpuscular Hgb Conc. 32.8 g/dL (32.0-36.0); Mean Corpuscular Volume 92.3 fL (80.0-100.0); Monocytes # (auto) 0.4 10 ^3/uL (0-1.3); Monocytes % (auto) 6.1 % (0.0-12.0); Neutrophils # (auto) 2.9 10 ^3/uL (1.6-8.6); Neutrophils % (auto) 49.7 % (37.0-80.0); Red Blood Cells 4.52 10^6/uL (4.0-5.20); White Blood Cell 5.8 10^3/uL (4.4-10.8)
[2021-01-22 13:26] LABS: Urine Bacteria NONE SEEN /hpf (None Seen); Urine Blood Negative /uL (Negative); Urine Mucus FEW (None Seen); Urine Specific Gravity 1.034 (1.001-1.035); Urine WBC 1 /hpf (0 - 5)
[2021-01-22 13:33] LABS: Albumin 3.7 g/dL (3.4-5.0); Calcium 8.6 mg/dL (8.5-10.1); Potassium 3.8 mmol/L (3.5-5.1)
[2021-01-22 13:37] LABS: BUN/Creatinine Ratio 24.4; Bilirubin, Total 0.7 mg/dL (0.2-1.0); Total Protein 6.9 g/dL (6.4-8.2)
[~2021-01-25] VITALS: Ht 157.5 cm; Wt 78.0 kg
[~2021-01-25 08:17] MED LIST changes: +FAMO20TA10 PO
[2021-01-25] MEDS ORDERED: LIDOCAINE VISCOUS 2% 15ML UD ONE (08:28)
[2021-01-25] MEDS ORDERED: MEPERIDINE HCL (25 MG/ML) 1ML VIAL ONE (09:14)
[2021-01-25] MEDS ORDERED: fentaNYL CITRATE 100 MCG/2 ML VL ONE (09:14)
[2021-01-25] MEDS ORDERED: MIDAZOLAM HCL 2MG/2ML 2ml VIAL (1mg/ml) ONE (09:14)
[2021-01-25] MEDS ORDERED: DexAMETHasone SOD PHOS 10MG/1ML VIAL INJ ONE (09:24)
[2021-01-25] MEDS ORDERED: PROPOFOL 10 MG/ML 20 ML IV ONE (09:24)
[2021-01-25] MEDS ORDERED: LABETALOL HCL 5 MG/ML 4ML SYRINGE IV PRN (10:00)
[2021-01-25] MEDS ORDERED: HYDROmorphone HCL 2 MG/ML VL IV PRN (10:00)
[2021-01-25] MEDS ORDERED: ONDANSETRON HCL 4 MG/2 ML VIAL IV PRN (10:00)
[2021-01-25] MEDS ORDERED: MIDAZOLAM HCL 2MG/2ML 2ml VIAL (1mg/ml) IV PRN (10:00)
[2021-01-25] MEDS ORDERED: ePHEDrine SULFATE 50 MG/ML AMP IV PRN (10:00)
[2021-01-25] MEDS ORDERED: MORPHINE SULFATE 4 MG/ML SYR/VIAL IV PRN (10:00)
[2021-01-25] MEDS ORDERED: hydrALAZINE HCL 20 MG/ML VL IV PRN (10:00)
[2021-01-25 10:30] VITALS: BP 114/72
== END 2021-01-25 10:41 | disposition home or self-care (01) ==
LOC: GI 08:17
PROVIDERS: ATTEND Internal Medicine Gastroenterology
DX: R10.32 Left lower quadrant pain (principal); K31.1 Adult hypertrophic pyloric stenosis; K29.70 Gastritis, unspecified, without bleeding; K57.30 Diverticulosis of large intestine without perforation or abscess without bleeding; K21.9 Gastro-esophageal reflux disease without esophagitis; G43.909 Migraine, unspecified, not intractable, without status migrainosus; Z20.822 Contact with and (suspected) exposure to COVID-19; Z98.890 Other specified postprocedural states; Z79.899 Other long term (current) drug therapy
CPT/HCPCS: 36415; 43245; 45378; 80053; 81001; 81025; 84702; 85025; C1726; J1100; J2175; J2250; J2704; J3010; J7030; U0003

== ENCOUNTER → 2021-03-15 | Outpatient (CLI) | payer BC | END | disposition home or self-care (01) | LOC: LAB 10:28 | PROVIDERS: ATTEND Nurse Practitioner Family | DX: R30.0 Dysuria (principal); N76.0 Acute vaginitis | CPT/HCPCS: 87086 ==

== ENCOUNTER → 2021-08-24 | Outpatient (CLI) | payer BC | END | disposition home or self-care (01) | LOC: LAB 11:41 | PROVIDERS: ATTEND Nurse Practitioner | DX: Z11.3 Encounter for screening for infections with a predominantly sexual mode of transmission (principal) | CPT/HCPCS: 87086 ==

== ENCOUNTER → 2021-09-06 | Day surgery (SDC) | payer BC ==
[2021-09-05 10:48] LABS: Urine Bacteria FEW /hpf (None Seen); Urine Blood Negative /uL (Negative); Urine Mucus FEW (None Seen); Urine Specific Gravity 1.027 (1.001-1.035); Urine WBC 1 /hpf (0 - 5)
[2021-09-05 10:54] LABS: INR 0.94 (0.9-1.15); Partial Thromboplastin Time 28.2 sec (23.6-33.0)
[2021-09-05 10:55] LABS: Basophils # (auto) 0 10 ^3/uL (0-0.2); Basophils % (auto) 0.8 % (0.0-2.0); Eosinophils # (auto) 0 10 ^3/uL (0-0.8); Eosinophils % (auto) 1.2 % (0.0-7.0); Hematocrit 41.3 % (36.0-46.0); Hemoglobin 14.1 g/dL (12.2-16.2); Lymphocytes # (auto) 1.1 10 ^3/uL (0.4-5.4); Lymphocytes % (auto) 31.7 % (10.0-50.0); Mean Corpuscular Hemoglobin 30.8 pg (28.0-32.0); Mean Corpuscular Hgb Conc. 34.2 g/dL (32.0-36.0); Monocytes # (auto) 0.4 10 ^3/uL (0-1.3); Neutrophils # (auto) 1.9 10 ^3/uL (1.6-8.6); Neutrophils % (auto) 55.3 % (37.0-80.0); Nucleated Red Blood Cells % 0.1 %; Red Blood Cells 4.58 10^6/uL (4.0-5.20); Red Cell Distribution Width 12.6 % (11.8-14.3); White Blood Cell 3.4 10^3/uL (4.4-10.8)
[2021-09-05 11:02] LABS: Potassium 3.8 mmol/L (3.5-5.1)
[2021-09-05 11:09] LABS: Albumin 3.6 g/dL (3.4-5.0); BUN/Creatinine Ratio 17.1; Calcium 9.1 mg/dL (8.5-10.1)
[2021-09-05 11:23] LABS: Bilirubin, Total 0.5 mg/dL (0.2-1.0); Total Protein 7.2 g/dL (6.4-8.2)
[~2021-09-06] VITALS: Ht 157.5 cm; Wt 76.2 kg
[~2021-09-06] MED LIST changes: +DexAMETHasone SOD PHOS 10MG/1ML VIAL INJ ONE; +MIDAZOLAM HCL 2MG/2ML 2ml VIAL (1mg/ml) ONE; +ONDANSETRON HCL 4 MG/2 ML VIAL ONE; +PROPOFOL 10 MG/ML 20 ML IV ONE; +SODIUM CHLORIDE LOCK 10 ML ONE; +fentaNYL CITRATE 100 MCG/2 ML VL ONE
[2021-09-06 11:05] VITALS: BP 105/66
== END | disposition home or self-care (01) ==
LOC: GI 09:37
PROVIDERS: ATTEND Internal Medicine Gastroenterology
DX: T18.118A Gastric contents in esophagus causing other injury, initial encounter (principal); E07.89 Other specified disorders of thyroid; K21.9 Gastro-esophageal reflux disease without esophagitis; G43.909 Migraine, unspecified, not intractable, without status migrainosus; Z88.1 Allergy status to other antibiotic agents; E66.9 Obesity, unspecified; Z68.32 Body mass index [BMI] 32.0-32.9, adult; Z20.822 Contact with and (suspected) exposure to COVID-19; X58.XXXA Exposure to other specified factors, initial encounter; Y93.89 Activity, other specified; Y92.89 Other specified places as the place of occurrence of the external cause; Y99.8 Other external cause status
CPT/HCPCS: 36415; 43249; 80053; 81001; 81025; 84702; 85025; 85610; 85730; J1100; J2250; J2405; J2704; J3010; J7030; U0003; 43235; 43239; 99152

== ENCOUNTER → 2022-03-19 | Day surgery (SDC) | payer BC ==
[2022-03-15 09:22] LABS: Basophils # (auto) 0.1 10 ^3/uL (0-0.2); Basophils % (auto) 1.2 % (0.0-2.0); Eosinophils # (auto) 0.1 10 ^3/uL (0-0.8); Eosinophils % (auto) 0.7 % (0.0-7.0); Hematocrit 43.6 % (36.0-46.0); Hemoglobin 14.8 g/dL (12.2-16.2); Lymphocytes # (auto) 2.6 10 ^3/uL (0.4-5.4); Lymphocytes % (auto) 31.2 % (10.0-50.0); Mean Corpuscular Hemoglobin 30.8 pg (28.0-32.0); Mean Corpuscular Hgb Conc. 33.9 g/dL (32.0-36.0); Mean Corpuscular Volume 90.8 fL (80.0-100.0); Monocytes # (auto) 0.6 10 ^3/uL (0-1.3); Monocytes % (auto) 6.8 % (0.0-12.0); Neutrophils % (auto) 60.1 % (37.0-80.0); Nucleated Red Blood Cells % 0.1 %; Red Cell Distribution Width 12.5 % (11.8-14.3); White Blood Cell 8.3 10^3/uL (4.4-10.8)
[2022-03-15 09:37] LABS: INR 0.93 (0.9-1.15)
[2022-03-15 09:53] LABS: Potassium 3.5 mmol/L (3.5-5.1)
[2022-03-15 10:00] LABS: Urine Specific Gravity 1.029 (1.001-1.035)
[2022-03-15 10:01] LABS: Albumin 4.2 g/dL (3.4-5.0); BUN/Creatinine Ratio 22.8; Bilirubin, Total 1.9 mg/dL (0.2-1.0); Calcium 9.2 mg/dL (8.5-10.1); Total Protein 7.7 g/dL (6.4-8.2); Urine Blood 3+ /uL (Negative)
[2022-03-15 15:00] LABS: Urine Bacteria NONE SEEN /hpf (None Seen); Urine Mucus FEW (None Seen); Urine WBC 92 /hpf (0 - 5)
[~2022-03-19] VITALS: Ht 157.5 cm; Wt 71.7 kg
[~2022-03-19] MED LIST changes: -DexAMETHasone SOD PHOS 10MG/1ML VIAL INJ ONE; +HYDROmorphone HCL 2 MG/ML VL/or syr IV PRN; +LIDOCAINE 2% (LOCAL ANESTH.) PF 5ml SDV ONE; +ONDANSETRON HCL 4 MG/2 ML VIAL IV PRN; -SODIUM CHLORIDE LOCK 10 ML ONE
[2022-03-19 14:00] VITALS: BP 105/68
== END | disposition home or self-care (01) ==
LOC: GI 12:03
PROVIDERS: ATTEND Internal Medicine Gastroenterology
DX: K31.1 Adult hypertrophic pyloric stenosis (principal); R11.2 Nausea with vomiting, unspecified; K21.9 Gastro-esophageal reflux disease without esophagitis; G43.909 Migraine, unspecified, not intractable, without status migrainosus; Z20.822 Contact with and (suspected) exposure to COVID-19
CPT/HCPCS: 36415; 43245; 80053; 81001; 81025; 84702; 85025; 85610; 85730; J2001; J2250; J2405; J2704; J3010; J7030; U0003

== ENCOUNTER 2022-04-10 13:41 | Emergency (ER) | payer BC, OTHER ==
[~2022-04-10] VITALS: Ht 157.5 cm; Wt 81.8 kg
[~2022-04-10 13:41] MED LIST changes: -HYDROmorphone HCL 2 MG/ML VL/or syr IV PRN; -LIDOCAINE 2% (LOCAL ANESTH.) PF 5ml SDV ONE; -MIDAZOLAM HCL 2MG/2ML 2ml VIAL (1mg/ml) ONE; -ONDANSETRON HCL 4 MG/2 ML VIAL IV PRN; -ONDANSETRON HCL 4 MG/2 ML VIAL ONE; -PROPOFOL 10 MG/ML 20 ML IV ONE; -fentaNYL CITRATE 100 MCG/2 ML VL ONE
[2022-04-10] MEDS ORDERED: KETOROLAC TROMETH 30 MG/ML 1ML VIAL IV ONE (16:00)
[2022-04-10] MEDS ORDERED: ONDANSETRON HCL 4 MG/2 ML VIAL IV ONE (16:00)
[2022-04-10] MEDS ORDERED: TRAM-297 PO (16:01)
[2022-04-10 16:47] VITALS: BP 130/82
== END 2022-04-10 16:51 | disposition home or self-care (01) ==
LOC: EEVIPCON 13:41 → EDBD 13:41 → ER 13:41
DX: S16.1XXA Strain of muscle, fascia and tendon at neck level, initial encounter (principal); S93.401A Sprain of unspecified ligament of right ankle, initial encounter; S00.81XA Abrasion of other part of head, initial encounter; K21.9 Gastro-esophageal reflux disease without esophagitis; Z79.899 Other long term (current) drug therapy; Z88.8 Allergy status to other drugs, medicaments and biological substances; V43.52XA Car driver injured in collision with other type car in traffic accident, initial encounter; Y93.89 Activity, other specified; Y92.410 Unspecified street and highway as the place of occurrence of the external cause; Y99.8 Other external cause status
CPT/HCPCS: 29515; 70450; 72125; 73610; 96374; 96375; 99284; J1885; J2405

== ENCOUNTER 2022-08-02 09:38 | Day surgery (SDC) | payer BC ==
[2022-07-31 08:31] LABS: Basophils # (auto) 0 10 ^3/uL (0-0.2); Basophils % (auto) 0.5 % (0.0-2.0); Eosinophils # (auto) 0 10 ^3/uL (0-0.8); Eosinophils % (auto) 0.5 % (0.0-7.0); Hematocrit 40.8 % (36.0-46.0); Hemoglobin 13.9 g/dL (12.2-16.2); Lymphocytes % (auto) 39.3 % (10.0-50.0); Mean Corpuscular Hemoglobin 31.9 pg (28.0-32.0); Mean Corpuscular Volume 93.9 fL (80.0-100.0); Monocytes # (auto) 0.5 10 ^3/uL (0-1.3); Monocytes % (auto) 6.4 % (0.0-12.0); Neutrophils # (auto) 4.1 10 ^3/uL (1.6-8.6); Neutrophils % (auto) 53.3 % (37.0-80.0); Red Blood Cells 4.35 10^6/uL (4.0-5.20); Red Cell Distribution Width 12.6 % (11.8-14.3); White Blood Cell 7.7 10^3/uL (4.4-10.8)
[2022-07-31 08:41] LABS: Urine Bacteria FEW /hpf (None Seen); Urine Blood Negative /uL (Negative); Urine Specific Gravity 1.016 (1.001-1.035); Urine WBC <1 /hpf (0 - 5)
[2022-07-31 08:49] LABS: Potassium 4.1 mmol/L (3.5-5.1)
[2022-07-31 08:53] LABS: Bilirubin, Total 0.9 mg/dL (0.2-1.0); Total Protein 7.3 g/dL (6.4-8.2)
[2022-07-31 08:59] LABS: INR 0.9 (0.9-1.15)
[~2022-08-02] VITALS: Ht 157.5 cm; Wt 76.2 kg
[~2022-08-02 09:38] MED LIST changes: +TRAM-297 PO; +VENL1TAB96 PO
[2022-08-02] MEDS ORDERED: fentaNYL CITRATE 100 MCG/2 ML VL ONE (10:10)
[2022-08-02] MEDS ORDERED: MIDAZOLAM HCL 2MG/2ML 2ml VIAL (1mg/ml) ONE (10:10)
[2022-08-02] MEDS ORDERED: MEPERIDINE HCL (25 MG/ML) 1ML VIAL ONE (10:10)
[2022-08-02 11:00] VITALS: BP 112/78
[2022-08-02] MEDS ORDERED: LABETALOL HCL 5 MG/ML 4ML SYRINGE IV PRN (11:30)
[2022-08-02] MEDS ORDERED: ePHEDrine SULFATE 50 MG/ML AMP IV PRN (11:30)
[2022-08-02] MEDS ORDERED: MIDAZOLAM HCL 2MG/2ML 2ml VIAL (1mg/ml) IV PRN (11:30)
[2022-08-02] MEDS ORDERED: HYDROmorphone HCL 2 MG/ML VL/or syr IV PRN (11:30)
[2022-08-02] MEDS ORDERED: MORPHINE SULFATE 4 MG/ML SYR/VIAL IV PRN (11:30)
[2022-08-02] MEDS ORDERED: ONDANSETRON HCL 4 MG/2 ML VIAL IV PRN (11:30)
[2022-08-02] MEDS ORDERED: DexAMETHasone SOD PHOS 10MG/1ML VIAL INJ ONE (11:49)
== END 2022-08-02 11:16 | disposition home or self-care (01) ==
LOC: GI 09:38
PROVIDERS: ATTEND Internal Medicine Gastroenterology
DX: K31.1 Adult hypertrophic pyloric stenosis (principal); K30 Functional dyspepsia; K21.00 Gastro-esophageal reflux disease with esophagitis, without bleeding; K21.9 Gastro-esophageal reflux disease without esophagitis; G43.909 Migraine, unspecified, not intractable, without status migrainosus
CPT/HCPCS: 36415; 43245; 80053; 81001; 84702; 85025; 85610; 85730; J1100; J2175; J2250; J3010; J7030

== ENCOUNTER 2022-09-25 06:23 | Inpatient (IN) | payer BC ==
[2022-09-23 10:14] LABS: Basophils # (auto) 0.1 10 ^3/uL (0-0.2); Basophils % (auto) 0.8 % (0.0-2.0); Eosinophils # (auto) 0.1 10 ^3/uL (0-0.8); Hematocrit 37.4 % (36.0-46.0); Hemoglobin 12.8 g/dL (12.2-16.2); Lymphocytes # (auto) 2.3 10 ^3/uL (0.4-5.4); Lymphocytes % (auto) 33.3 % (10.0-50.0); Mean Corpuscular Hgb Conc. 34.2 g/dL (32.0-36.0); Mean Corpuscular Volume 93.6 fL (80.0-100.0); Monocytes # (auto) 0.4 10 ^3/uL (0-1.3); Monocytes % (auto) 6.3 % (0.0-12.0); Neutrophils % (auto) 58.6 % (37.0-80.0); Nucleated Red Blood Cells % 0.1 %; Red Blood Cells 3.99 10^6/uL (4.0-5.20); Red Cell Distribution Width 12.4 % (11.8-14.3); White Blood Cell 6.9 10^3/uL (4.4-10.8)
[2022-09-23 10:29] LABS: Urine Bacteria NONE SEEN /hpf (None Seen); Urine Blood Negative /uL (Negative); Urine WBC <1 /hpf (0 - 5)
[2022-09-23 10:40] LABS: INR 0.94 (0.9-1.15); Partial Thromboplastin Time 25.9 sec (24.6-33.4)
[2022-09-23 10:50] LABS: Potassium 4.2 mmol/L (3.5-5.1)
[2022-09-23 10:57] LABS: Albumin 4.2 g/dL (3.4-5.0); BUN/Creatinine Ratio 19.7 (10.0-20.0); Calcium 8.5 mg/dL (8.5-10.1); Total Protein 7.2 g/dL (6.4-8.2)
[~2022-09-25] VITALS: Ht 157.5 cm; Wt 84.4 kg
[~2022-09-25 06:23] MED LIST changes: -FAMO20TA10 PO; +OMEP20TA85 PO; -PANT40TA2 PO; -TRAM-297 PO; +VENL150T26 PO; -VENL1TAB96 PO
[2022-09-25] MEDS ORDERED: ceFAZolin 1GM/50ML 100 ML IV ONE (07:34)
[2022-09-25] MEDS ORDERED: MIDAZOLAM HCL 2MG/2ML 2ml VIAL (1mg/ml) ONE (08:12)
[2022-09-25] MEDS ORDERED: fentaNYL CITRATE 100 MCG/2 ML VL ONE (08:12)
[2022-09-25] MEDS ORDERED: MEPERIDINE HCL (50 MG/ML) 1 ML VIAL ONE ×2 (08:12→09:34)
[2022-09-25] MEDS ORDERED: fentaNYL CITRATE 5 ML ONE (08:13)
[2022-09-25] MEDS ORDERED: DexAMETHasone SOD PHOS 10MG/1ML VIAL INJ ONE (08:13)
[2022-09-25] MEDS ORDERED: ROCURONIUM 10MG/ML 10ML VIAL IV ONE (08:15)
[2022-09-25] MEDS ORDERED: BUPIVACAINE 0.25% INJ 50ML VIAL ONE (09:10)
[2022-09-25] MEDS ORDERED: LIDOCAINE W/ EPINEPHRINE 1% 20ML VIAL ONE (09:10)
[2022-09-25] MEDS ORDERED: HYDROmorphone HCL 2 MG/ML VL/or syr IV PRN ×2 (10:30→10:45)
[2022-09-25] MEDS ORDERED: LABETALOL HCL 5 MG/ML 4ML SYRINGE IV PRN (10:30)
[2022-09-25] MEDS ORDERED: MIDAZOLAM HCL 2MG/2ML 2ml VIAL (1mg/ml) IV PRN (10:30)
[2022-09-25] MEDS ORDERED: KETOROLAC TROMETH 30 MG/ML 1ML VIAL IV ONE (10:30)
[2022-09-25] MEDS ORDERED: MORPHINE SULFATE 4 MG/ML SYR/VIAL IV PRN (10:30)
[2022-09-25] MEDS ORDERED: ePHEDrine SULFATE 50 MG/ML AMP IV PRN (10:30)
[2022-09-25] MEDS ORDERED: ONDANSETRON HCL 4 MG/2 ML VIAL IV PRN (10:30)
[2022-09-25] MEDS ORDERED: SUGAMMADEX 200mg/2ml Vial (100MG/ML) IV ONE (10:36)
[2022-09-25] MEDS ORDERED: HYDROmorphone HCL 2 MG/ML VL/or syr IV ONE (11:53)
[2022-09-25] MEDS ORDERED: ONDANSETRON HCL 4 MG/2 ML VIAL IV ONE (11:54)
[2022-09-25] MEDS ORDERED: NITROGLYCERIN 0.4 MG SL TAB SL PRN (12:00)
[2022-09-25] MEDS ORDERED: MORPHINE SULFATE INJ 2 MG/ml SYRG IV PRN (12:00)
[2022-09-25] MEDS: D5W/SOD CHL 0.45%/KCL 40MEQ 1,000 ML IV SCH ×2 (13:05→19:05)
[2022-09-25 13:06] VITALS: BP 116/68
[2022-09-25 16:40] VITALS: BP 118/81
[2022-09-25] MEDS ORDERED: [UNRECOGNIZED DRUG - CODE] SC (17:11)
[2022-09-25] MEDS ORDERED: SUMAtriptan SUCCINATE 6 MG/0.5 ML VL SC PRN ×2 (17:45→18:15)
[2022-09-25] MEDS: ONDANSETRON HCL 4 MG/2 ML VIAL IV PRN ×2 (19:02→21:36)
[2022-09-25 20:00] VITALS: BP 125/73
[2022-09-25] MEDS: PANTOPRAZOLE 40 MG/10 ML VIAL INJ IV SCH (21:29)
[2022-09-25] MEDS: HYDROmorphone HCL 2 MG/ML VL/or syr IV PRN (21:30)
[2022-09-25 22:00] VITALS: BP 125/73
[2022-09-26] VITALS (7 sets, daily range): BP systolic 119–145; BP diastolic 73–88
[2022-09-26] MEDS: D5W/SOD CHL 0.45%/KCL 40MEQ 1,000 ML IV SCH ×3 (03:28→20:15)
[2022-09-26] MEDS: HYDROmorphone HCL 2 MG/ML VL/or syr IV PRN ×4 (03:57→19:32)
[2022-09-26] MEDS: ONDANSETRON HCL 4 MG/2 ML VIAL IV PRN ×4 (03:59→19:34)
[2022-09-26 06:44] LABS: Basophils # (auto) 0 10 ^3/uL (0-0.2); Basophils % (auto) 0.4 % (0.0-2.0); Eosinophils # (auto) 0 10 ^3/uL (0-0.8); Eosinophils % (auto) 0.1 % (0.0-7.0); Hematocrit 35.2 % (36.0-46.0); Hemoglobin 12.1 g/dL (12.2-16.2); Lymphocytes # (auto) 2.1 10 ^3/uL (0.4-5.4); Lymphocytes % (auto) 22.5 % (10.0-50.0); Mean Corpuscular Hemoglobin 32.2 pg (28.0-32.0); Mean Corpuscular Hgb Conc. 34.2 g/dL (32.0-36.0); Mean Corpuscular Volume 94.1 fL (80.0-100.0); Monocytes # (auto) 0.6 10 ^3/uL (0-1.3); Monocytes % (auto) 6.2 % (0.0-12.0); Neutrophils # (auto) 6.5 10 ^3/uL (1.6-8.6); Neutrophils % (auto) 70.8 % (37.0-80.0); Nucleated Red Blood Cells % 0.1 %; Red Blood Cells 3.75 10^6/uL (4.0-5.20); Red Cell Distribution Width 12.7 % (11.8-14.3); White Blood Cell 9.1 10^3/uL (4.4-10.8)
[2022-09-26 07:06] LABS: Albumin 3.2 g/dL (3.4-5.0); Calcium 8.1 mg/dL (8.5-10.1); Potassium 3.9 mmol/L (3.5-5.1)
[2022-09-26 07:11] LABS: BUN/Creatinine Ratio 15.3 (10.0-20.0); Total Protein 5.9 g/dL (6.4-8.2)
[2022-09-26] MEDS: PANTOPRAZOLE 40 MG/10 ML VIAL INJ IV SCH ×2 (09:49→21:15)
[2022-09-26] MEDS: cefTRIAXone 1GM/50ML D5W 50 ML IV SCH (09:49)
[2022-09-26] MEDS ORDERED: KETOROLAC TROMETH 30 MG/ML 1ML VIAL IV PRN (10:15)
[2022-09-26] MEDS ORDERED: KETOROLAC TROMETH 30 MG/ML 1ML VIAL IV ONE (10:15)
[2022-09-27] MEDS: ONDANSETRON HCL 4 MG/2 ML VIAL IV PRN ×5 (01:03→20:23)
[2022-09-27] MEDS: HYDROmorphone HCL 2 MG/ML VL/or syr IV PRN ×5 (01:03→20:24)
[2022-09-27 05:00] VITALS: BP 116/65
[2022-09-27 05:33] LABS: Basophils # (auto) 0 10 ^3/uL (0-0.2); Basophils % (auto) 0.4 % (0.0-2.0); Eosinophils # (auto) 0 10 ^3/uL (0-0.8); Eosinophils % (auto) 0.3 % (0.0-7.0); Hematocrit 38.3 % (36.0-46.0); Lymphocytes # (auto) 1.6 10 ^3/uL (0.4-5.4); Lymphocytes % (auto) 24.1 % (10.0-50.0); Mean Corpuscular Hgb Conc. 33.9 g/dL (32.0-36.0); Mean Corpuscular Volume 94.6 fL (80.0-100.0); Monocytes # (auto) 0.5 10 ^3/uL (0-1.3); Monocytes % (auto) 7.4 % (0.0-12.0); Neutrophils # (auto) 4.4 10 ^3/uL (1.6-8.6); Neutrophils % (auto) 67.8 % (37.0-80.0); Nucleated Red Blood Cells % 0.2 %; Red Blood Cells 4.05 10^6/uL (4.0-5.20); Red Cell Distribution Width 12.6 % (11.8-14.3); White Blood Cell 6.5 10^3/uL (4.4-10.8)
[2022-09-27 05:51] LABS: Calcium 8.3 mg/dL (8.5-10.1); Potassium 3.9 mmol/L (3.5-5.1)
[2022-09-27 05:53] LABS: BUN/Creatinine Ratio 11.5 (10.0-20.0)
[2022-09-27] MEDS: D5W/SOD CHL 0.45%/KCL 40MEQ 1,000 ML IV SCH ×2 (06:15→16:15)
[2022-09-27 09:00] VITALS: BP 138/89
[2022-09-27] MEDS: cefTRIAXone 1GM/50ML D5W 50 ML IV SCH (09:11)
[2022-09-27] MEDS: PANTOPRAZOLE 40 MG/10 ML VIAL INJ IV SCH ×2 (09:11→23:36)
[2022-09-27 12:52] VITALS: BP 108/63
[2022-09-27 17:15] VITALS: BP 117/75
[2022-09-27 22:00] VITALS: BP 130/70
[2022-09-28] MEDS: HYDROmorphone HCL 2 MG/ML VL/or syr IV PRN ×4 (01:00→18:12)
[2022-09-28] MEDS: ONDANSETRON HCL 4 MG/2 ML VIAL IV PRN ×4 (01:00→18:11)
[2022-09-28] MEDS: D5W/SOD CHL 0.45%/KCL 40MEQ 1,000 ML IV SCH ×3 (02:27→22:15)
[2022-09-28 05:00] VITALS: BP 122/78
[2022-09-28 09:00] VITALS: BP 122/74
[2022-09-28] MEDS: cefTRIAXone 1GM/50ML D5W 50 ML IV SCH (09:00)
[2022-09-28] MEDS: PANTOPRAZOLE 40 MG/10 ML VIAL INJ IV SCH ×2 (10:00→22:21)
[2022-09-28] MEDS ORDERED: KETOROLAC TROMETH 30 MG/ML 1ML VIAL IV PRN (10:15)
[2022-09-28 13:00] VITALS: BP 134/85
[2022-09-28 17:00] VITALS: BP 114/77
[2022-09-28 22:00] VITALS: BP 112/74
[2022-09-29] MEDS: ONDANSETRON HCL 4 MG/2 ML VIAL IV PRN ×5 (01:08→20:58)
[2022-09-29] MEDS: HYDROmorphone HCL 2 MG/ML VL/or syr IV PRN ×4 (01:08→20:57)
[2022-09-29 05:00] VITALS: BP 124/85
[2022-09-29 09:00] VITALS: BP 121/90
[2022-09-29] MEDS: cefTRIAXone 1GM/50ML D5W 50 ML IV SCH (10:26)
[2022-09-29] MEDS: PANTOPRAZOLE 40 MG/10 ML VIAL INJ IV SCH ×2 (10:26→22:28)
[2022-09-29] MEDS: D5W/SOD CHL 0.45%/KCL 40MEQ 1,000 ML IV SCH ×2 (10:27→18:15)
[2022-09-29 13:00] VITALS: BP 125/89
[2022-09-29 22:00] VITALS: BP 123/94
[2022-09-30] MEDS: ONDANSETRON HCL 4 MG/2 ML VIAL IV PRN ×3 (01:14→21:33)
[2022-09-30] MEDS: HYDROmorphone HCL 2 MG/ML VL/or syr IV PRN ×3 (01:14→21:34)
[2022-09-30 05:00] VITALS: BP 125/79
[2022-09-30] MEDS: D5W/SOD CHL 0.45%/KCL 40MEQ 1,000 ML IV SCH ×2 (05:53→14:15)
[2022-09-30 09:00] VITALS: BP 125/84
[2022-09-30] MEDS: PANTOPRAZOLE 40 MG/10 ML VIAL INJ IV SCH ×2 (09:25→22:45)
[2022-09-30] MEDS: cefTRIAXone 1GM/50ML D5W 50 ML IV SCH (09:27)
[2022-09-30] MEDS ORDERED: GASTROGRAFIN 120 ML SOL ONE (10:04)
[2022-09-30 13:00] VITALS: BP 122/88
[2022-09-30] MEDS: LORazepam 2MG/ML-1ML VIAL IV PRN ×2 (13:15→20:00)
[2022-09-30 17:06] VITALS: BP 118/89
[2022-09-30 21:55] VITALS: BP 115/85
[2022-10-01] MEDS: D5W/SOD CHL 0.45%/KCL 40MEQ 1,000 ML IV SCH ×3 (00:15→12:30)
[2022-10-01] MEDS: ONDANSETRON HCL 4 MG/2 ML VIAL IV PRN ×3 (00:58→23:14)
[2022-10-01] MEDS: HYDROmorphone HCL 2 MG/ML VL/or syr IV PRN ×2 (00:58→23:19)
[2022-10-01] MEDS: LORazepam 2MG/ML-1ML VIAL IV PRN ×4 (03:24→23:15)
[2022-10-01 05:00] VITALS: BP 114/83
[2022-10-01 05:51] LABS: Basophils # (auto) 0 10 ^3/uL (0-0.2); Basophils % (auto) 0.4 % (0.0-2.0); Eosinophils # (auto) 0.3 10 ^3/uL (0-0.8); Eosinophils % (auto) 3.8 % (0.0-7.0); Hematocrit 42.1 % (36.0-46.0); Hemoglobin 14.7 g/dL (12.2-16.2); Lymphocytes # (auto) 1.3 10 ^3/uL (0.4-5.4); Lymphocytes % (auto) 14.3 % (10.0-50.0); Mean Corpuscular Hemoglobin 32.3 pg (28.0-32.0); Mean Corpuscular Hgb Conc. 34.8 g/dL (32.0-36.0); Mean Corpuscular Volume 92.8 fL (80.0-100.0); Monocytes % (auto) 10.9 % (0.0-12.0); Neutrophils # (auto) 6.3 10 ^3/uL (1.6-8.6); Neutrophils % (auto) 70.6 % (37.0-80.0); Nucleated Red Blood Cells % 0.2 %; Red Blood Cells 4.53 10^6/uL (4.0-5.20); Red Cell Distribution Width 12.3 % (11.8-14.3)
[2022-10-01 06:28] LABS: Albumin 3.8 g/dL (3.4-5.0); BUN/Creatinine Ratio 31.6 (10.0-20.0); Bilirubin, Total 2.6 mg/dL (0.2-1.0); Calcium 9.2 mg/dL (8.5-10.1); Total Protein 8.2 g/dL (6.4-8.2)
[2022-10-01] MEDS: cefTRIAXone 1GM/50ML D5W 50 ML IV SCH (08:32)
[2022-10-01 09:00] VITALS: BP 111/74
[2022-10-01] MEDS ORDERED: PPN PER PHARMACY 0 ML IV SCH (09:30)
[2022-10-01] MEDS: PANTOPRAZOLE 40 MG/10 ML VIAL INJ IV SCH ×2 (12:27→23:08)
[2022-10-01] MEDS: MAGIC MOUTHWASH 55 ML SUSP MT SCH ×3 (12:27→23:12)
[2022-10-01 12:33] LABS: Magnesium 2.8 mg/dL (1.6-2.6); Phosphorus 3.8 mg/dL (2.5-4.90)
[2022-10-01 13:00] VITALS: BP 105/72
[2022-10-01 17:00] VITALS: BP 135/78
[2022-10-01 20:00] VITALS: BP 148/90
[2022-10-01] MEDS ORDERED: DEXTROSE (50%) 50ML SYRG IV SCH (20:00)
[2022-10-01] MEDS ORDERED: PPN PER PHARMACY IV NR ×6 (20:00)
[2022-10-01 23:17] VITALS: BP 148/90
[2022-10-02] MEDS: ACCU-CHEK COMFORT CURVE STRIP VI SCH ×4 (04:21→18:20)
[2022-10-02 05:25] VITALS: BP 122/86
[2022-10-02] MEDS: MAGIC MOUTHWASH 55 ML SUSP MT SCH ×4 (05:48→21:25)
[2022-10-02] MEDS: InsuLIN REG 1unit/0.01ml Soln (100units/ml) SC SCH ×4 (05:49→18:20)
[2022-10-02 06:01] LABS: Basophils # (auto) 0.1 10 ^3/uL (0-0.2); Basophils % (auto) 0.8 % (0.0-2.0); Eosinophils # (auto) 0.6 10 ^3/uL (0-0.8); Eosinophils % (auto) 5.8 % (0.0-7.0); Hematocrit 41.4 % (36.0-46.0); Hemoglobin 14.3 g/dL (12.2-16.2); Lymphocytes # (auto) 1.5 10 ^3/uL (0.4-5.4); Lymphocytes % (auto) 15.3 % (10.0-50.0); Mean Corpuscular Hemoglobin 32.4 pg (28.0-32.0); Mean Corpuscular Hgb Conc. 34.6 g/dL (32.0-36.0); Mean Corpuscular Volume 93.6 fL (80.0-100.0); Monocytes # (auto) 1.1 10 ^3/uL (0-1.3); Monocytes % (auto) 10.8 % (0.0-12.0); Neutrophils # (auto) 6.6 10 ^3/uL (1.6-8.6); Neutrophils % (auto) 67.3 % (37.0-80.0); Nucleated Red Blood Cells % 0.2 %; Red Blood Cells 4.42 10^6/uL (4.0-5.20); Red Cell Distribution Width 12.3 % (11.8-14.3); White Blood Cell 9.9 10^3/uL (4.4-10.8)
[2022-10-02 06:22] LABS: Potassium 3.7 mmol/L (3.5-5.1)
[2022-10-02 06:32] LABS: Albumin 3.3 g/dL (3.4-5.0); BUN/Creatinine Ratio 39.7 (10.0-20.0); Bilirubin, Total 2.6 mg/dL (0.2-1.0); Calcium 8.5 mg/dL (8.5-10.1); Magnesium 2.7 mg/dL (1.6-2.6); Phosphorus 3.4 mg/dL (2.5-4.90); Total Protein 7.6 g/dL (6.4-8.2)
[2022-10-02] MEDS ORDERED: BUPIVACAINE 0.25% INJ 50ML VIAL ONE (06:48)
[2022-10-02] MEDS ORDERED: LIDOCAINE W/ EPINEPHRINE 1% 20ML VIAL ONE (06:48)
[2022-10-02] MEDS ORDERED: ROCURONIUM 10MG/ML 10ML VIAL IV ONE (07:46)
[2022-10-02] MEDS ORDERED: FAMOTIDINE (10MG/ML) 2ML VL IV ONE (07:46)
[2022-10-02] MEDS ORDERED: SUCCINYLCHOLINE CHLORIDE 20 MG/ML 10ML VIAL IV ONE (07:46)
[2022-10-02] MEDS ORDERED: ceFAZolin 1GM/50ML 100 ML IV ONE (07:46)
[2022-10-02] MEDS ORDERED: HYDROmorphone HCL 2 MG/ML VL/or syr ONE (07:48)
[2022-10-02] MEDS ORDERED: fentaNYL CITRATE 100 MCG/2 ML VL ONE (07:48)
[2022-10-02] MEDS ORDERED: DexAMETHasone SOD PHOS 10MG/1ML VIAL INJ ONE (07:48)
[2022-10-02] MEDS ORDERED: KETOROLAC TROMETH 30 MG/ML 1ML VIAL ONE (07:48)
[2022-10-02] MEDS ORDERED: GLYCOPYRROLATE 0.2 MG/ML 1ML VIAL ONE (07:48)
[2022-10-02] MEDS ORDERED: ePHEDrine SULFATE 50 MG/ML AMP ONE (07:48)
[2022-10-02] MEDS ORDERED: MIDAZOLAM HCL 2MG/2ML 2ml VIAL (1mg/ml) ONE (07:48)
[2022-10-02] MEDS ORDERED: ONDANSETRON HCL 4 MG/2 ML VIAL ONE (07:48)
[2022-10-02] MEDS ORDERED: LIDOCAINE HCL 100 MG/5ML (2%) SYRG INJ IV ONE (07:48)
[2022-10-02] MEDS ORDERED: PROPOFOL 10 MG/ML 20 ML IV ONE (07:48)
[2022-10-02 08:00] VITALS: BP 124/80
[2022-10-02 08:43] VITALS: BP 124/80
[2022-10-02] MEDS ORDERED: MEPERIDINE HCL (50 MG/ML) 1 ML VIAL ONE (09:12)
[2022-10-02 09:35] LABS: Partial Thromboplastin Time 20.5 sec (24.6-33.4)
[2022-10-02] MEDS: PANTOPRAZOLE 40 MG/10 ML VIAL INJ IV SCH ×2 (10:00→21:16)
[2022-10-02] MEDS ORDERED: SUGAMMADEX 200mg/2ml Vial (100MG/ML) IV ONE (10:02)
[2022-10-02] MEDS ORDERED: HYDROmorphone HCL 2 MG/ML VL/or syr IV PRN (10:45)
[2022-10-02] MEDS ORDERED: ONDANSETRON HCL 4 MG/2 ML VIAL IV PRN (10:45)
[2022-10-02] MEDS: cefTRIAXone 1GM/50ML D5W 50 ML IV SCH (13:05)
[2022-10-02] MEDS ORDERED: KETAMINE 50mg/ML 10ml Vial (500mg/10ml) IV ONE (16:50)
[2022-10-02] MEDS: HYDROmorphone HCL 2 MG/ML VL/or syr IV PRN ×2 (16:55→21:41)
[2022-10-02] MEDS: ONDANSETRON HCL 4 MG/2 ML VIAL IV PRN ×2 (16:55→21:40)
[2022-10-02 16:57] VITALS: BP 110/74
[2022-10-02] MEDS: KETOROLAC TROMETH 30 MG/ML 1ML VIAL IV PRN (17:44)
[2022-10-02] MEDS: D5W/SOD CHL 0.45%/KCL 40MEQ 1,000 ML IV SCH (19:01)
[2022-10-02 20:00] VITALS: BP 116/82
[2022-10-02] MEDS ORDERED: [UNRECOGNIZED DRUG - OTHER] IV NR ×8 (20:00)
[2022-10-02] MEDS ORDERED: FAT EMULSION IV NR ×8 (20:00)
[2022-10-02] MEDS ORDERED: SODIUM ACETATE IV NR ×8 (20:00)
[2022-10-02] MEDS ORDERED: SODIUM PHOSPHATES IV NR ×8 (20:00)
[2022-10-02 22:00] VITALS: BP 116/82
[2022-10-02] MEDS: LORazepam 2MG/ML-1ML VIAL IV PRN (23:00)
[2022-10-03] MEDS: D5W/SOD CHL 0.45%/KCL 40MEQ 1,000 ML IV SCH (01:30)
[2022-10-03] MEDS: ONDANSETRON HCL 4 MG/2 ML VIAL IV PRN ×6 (01:46→23:32)
[2022-10-03] MEDS: HYDROmorphone HCL 2 MG/ML VL/or syr IV PRN ×6 (01:55→23:33)
[2022-10-03 05:00] VITALS: BP 100/66
[2022-10-03 05:59] LABS: Basophils # (auto) 0 10 ^3/uL (0-0.2); Basophils % (auto) 0.3 % (0.0-2.0); Eosinophils # (auto) 0.1 10 ^3/uL (0-0.8); Eosinophils % (auto) 0.9 % (0.0-7.0); Hematocrit 32.6 % (36.0-46.0); Hemoglobin 11.1 g/dL (12.2-16.2); Lymphocytes # (auto) 1.2 10 ^3/uL (0.4-5.4); Lymphocytes % (auto) 13.3 % (10.0-50.0); Mean Corpuscular Hemoglobin 31.7 pg (28.0-32.0); Mean Corpuscular Hgb Conc. 34.1 g/dL (32.0-36.0); Mean Corpuscular Volume 92.7 fL (80.0-100.0); Monocytes # (auto) 0.7 10 ^3/uL (0-1.3); Monocytes % (auto) 7.4 % (0.0-12.0); Neutrophils # (auto) 6.9 10 ^3/uL (1.6-8.6); Neutrophils % (auto) 78.1 % (37.0-80.0); Nucleated Red Blood Cells % 0.1 %; Red Blood Cells 3.51 10^6/uL (4.0-5.20); Red Cell Distribution Width 12.3 % (11.8-14.3); White Blood Cell 8.9 10^3/uL (4.4-10.8)
[2022-10-03] MEDS: MAGIC MOUTHWASH 55 ML SUSP MT SCH ×4 (06:00→21:33)
[2022-10-03] MEDS: ACCU-CHEK COMFORT CURVE STRIP VI SCH ×5 (06:00→23:55)
[2022-10-03] MEDS: InsuLIN REG 1unit/0.01ml Soln (100units/ml) SC SCH ×5 (06:00→23:55)
[2022-10-03 06:25] LABS: Albumin 2.3 g/dL (3.4-5.0); BUN/Creatinine Ratio 28.6 (10.0-20.0); Bilirubin, Total 2.2 mg/dL (0.2-1.0); Calcium 7.4 mg/dL (8.5-10.1); Magnesium 1.9 mg/dL (1.6-2.6); Phosphorus 1.7 mg/dL (2.5-4.90); Total Protein 5.4 g/dL (6.4-8.2)
[2022-10-03] MEDS: cefTRIAXone 1GM/50ML D5W 50 ML IV SCH (08:57)
[2022-10-03] MEDS: PANTOPRAZOLE 40 MG/10 ML VIAL INJ IV SCH ×2 (08:57→21:27)
[2022-10-03 09:00] VITALS: BP 100/65
[2022-10-03] MEDS ORDERED: D5W/SOD CHL 0.45% 1,000 ML IV SCH (09:30)
[2022-10-03] MEDS ORDERED: SODIUM PHOSP 40 MEQ in D5W 5% 250 ML IV ONE (09:30)
[2022-10-03] MEDS ORDERED: TPN PER PHARMACY 0 ML IV SCH (09:45)
[2022-10-03] MEDS: D5W/SOD CHL 0.45% 1,000 ML IV SCH (12:11)
[2022-10-03 13:00] VITALS: BP 102/71
[2022-10-03 17:00] VITALS: BP 116/79
[2022-10-03] MEDS ORDERED: FAT EMULSION IV NR ×11 (20:00)
[2022-10-03] MEDS ORDERED: SODIUM PHOSPHATES IV NR ×11 (20:00)
[2022-10-03] MEDS ORDERED: [UNRECOGNIZED DRUG - OTHER] IV NR ×11 (20:00)
[2022-10-03] MEDS ORDERED: SODIUM ACETATE IV NR ×11 (20:00)
[2022-10-03] MEDS: KETOROLAC TROMETH 30 MG/ML 1ML VIAL IV PRN (21:28)
[2022-10-03 22:00] VITALS: BP 122/84
[2022-10-04] MEDS: ONDANSETRON HCL 4 MG/2 ML VIAL IV PRN ×3 (04:05→18:22)
[2022-10-04] MEDS: HYDROmorphone HCL 2 MG/ML VL/or syr IV PRN ×3 (04:20→18:22)
[2022-10-04 05:00] VITALS: BP 114/76
[2022-10-04] MEDS: D5W/SOD CHL 0.45% 1,000 ML IV SCH (05:45)
[2022-10-04] MEDS: MAGIC MOUTHWASH 55 ML SUSP MT SCH ×4 (06:00→22:00)
[2022-10-04] MEDS: InsuLIN REG 1unit/0.01ml Soln (100units/ml) SC SCH ×3 (06:00→18:06)
[2022-10-04] MEDS: ACCU-CHEK COMFORT CURVE STRIP VI SCH ×3 (06:08→18:41)
[2022-10-04 06:12] LABS: Basophils # (auto) 0 10 ^3/uL (0-0.2); Basophils % (auto) 0.5 % (0.0-2.0); Eosinophils # (auto) 0.2 10 ^3/uL (0-0.8); Eosinophils % (auto) 2.8 % (0.0-7.0); Lymphocytes # (auto) 1.4 10 ^3/uL (0.4-5.4); Lymphocytes % (auto) 17.9 % (10.0-50.0); Mean Corpuscular Hemoglobin 31.7 pg (28.0-32.0); Mean Corpuscular Hgb Conc. 34.2 g/dL (32.0-36.0); Mean Corpuscular Volume 92.7 fL (80.0-100.0); Monocytes # (auto) 0.7 10 ^3/uL (0-1.3); Monocytes % (auto) 8.9 % (0.0-12.0); Neutrophils # (auto) 5.3 10 ^3/uL (1.6-8.6); Neutrophils % (auto) 69.9 % (37.0-80.0); Nucleated Red Blood Cells % 0.1 %; Red Blood Cells 3.78 10^6/uL (4.0-5.20); Red Cell Distribution Width 12.3 % (11.8-14.3); White Blood Cell 7.6 10^3/uL (4.4-10.8)
[2022-10-04 06:21] LABS: Calcium 8.1 mg/dL (8.5-10.1); Magnesium 2.3 mg/dL (1.6-2.6)
[2022-10-04 06:27] LABS: Albumin 2.4 g/dL (3.4-5.0); BUN/Creatinine Ratio 22.2 (10.0-20.0); Bilirubin, Total 1.5 mg/dL (0.2-1.0); Phosphorus 2.5 mg/dL (2.5-4.90); Total Protein 6.1 g/dL (6.4-8.2)
[2022-10-04 06:46] LABS: Potassium 2.9 mmol/L (3.5-5.1)
[2022-10-04 08:35] VITALS: BP 117/81
[2022-10-04] MEDS: cefTRIAXone 1GM/50ML D5W 50 ML IV SCH (09:06)
[2022-10-04] MEDS: PANTOPRAZOLE 40 MG/10 ML VIAL INJ IV SCH ×2 (09:06→23:28)
[2022-10-04] MEDS: POTASSIUM CHL 20MEQ/100ML 100 ML IV SCH ×3 (10:30→14:30)
[2022-10-04 13:00] VITALS: BP 123/86
[2022-10-04] MEDS ORDERED: POTASSIUM PHOSPHATE 22 MEQ in SODIUM CHL 0.9% 100 ML IV ONE (17:00)
[2022-10-04 20:00] VITALS: BP 120/85
[2022-10-04] MEDS ORDERED: PPN PER PHARMACY IV NR ×11 (20:00)
[2022-10-04] MEDS: KETOROLAC TROMETH 30 MG/ML 1ML VIAL IV PRN (21:04)
[2022-10-04 22:00] VITALS: BP 120/85
[2022-10-05] VITALS (33 sets, daily range): BP systolic 88–119; BP diastolic 53–91
[2022-10-05] MEDS: ONDANSETRON HCL 4 MG/2 ML VIAL IV PRN ×6 (00:01→21:08)
[2022-10-05] MEDS: HYDROmorphone HCL 2 MG/ML VL/or syr IV PRN ×6 (00:02→21:08)
[2022-10-05] MEDS: ACCU-CHEK COMFORT CURVE STRIP VI SCH ×5 (00:04→23:47)
[2022-10-05] MEDS: D5W/SOD CHL 0.45% 1,000 ML IV SCH (02:56)
[2022-10-05] MEDS: KETOROLAC TROMETH 30 MG/ML 1ML VIAL IV PRN ×4 (03:04→23:30)
[2022-10-05 05:39] LABS: Basophils # (auto) 0 10 ^3/uL (0-0.2); Basophils % (auto) 0.5 % (0.0-2.0); Eosinophils # (auto) 0.2 10 ^3/uL (0-0.8); Eosinophils % (auto) 3.2 % (0.0-7.0); Hemoglobin 11.7 g/dL (12.2-16.2); Lymphocytes # (auto) 1.4 10 ^3/uL (0.4-5.4); Lymphocytes % (auto) 19.1 % (10.0-50.0); Mean Corpuscular Hgb Conc. 34.5 g/dL (32.0-36.0); Mean Corpuscular Volume 92.9 fL (80.0-100.0); Monocytes # (auto) 0.6 10 ^3/uL (0-1.3); Monocytes % (auto) 8.7 % (0.0-12.0); Neutrophils # (auto) 4.9 10 ^3/uL (1.6-8.6); Neutrophils % (auto) 68.5 % (37.0-80.0); Red Blood Cells 3.66 10^6/uL (4.0-5.20); Red Cell Distribution Width 12.1 % (11.8-14.3); White Blood Cell 7.1 10^3/uL (4.4-10.8)
[2022-10-05 05:40] LABS: Potassium 3.4 mmol/L (3.5-5.1)
[2022-10-05 05:47] LABS: Albumin 2.4 g/dL (3.4-5.0); BUN/Creatinine Ratio 31.3 (10.0-20.0); Bilirubin, Total 0.9 mg/dL (0.2-1.0); Calcium 8.2 mg/dL (8.5-10.1)
[2022-10-05] MEDS: InsuLIN REG 1unit/0.01ml Soln (100units/ml) SC SCH ×5 (06:00→23:44)
[2022-10-05] MEDS: MAGIC MOUTHWASH 55 ML SUSP MT SCH ×4 (06:35→22:00)
[2022-10-05] MEDS: cefTRIAXone 1GM/50ML D5W 50 ML IV SCH (08:13)
[2022-10-05] MEDS: PANTOPRAZOLE 40 MG/10 ML VIAL INJ IV SCH ×2 (08:14→21:56)
[2022-10-05] MEDS: POTASSIUM CHL 20MEQ/100ML 100 ML IV SCH ×2 (10:09→12:30)
[2022-10-05] MEDS ORDERED: D5W/SOD CHL 0.45%/KCL 40MEQ 1,000 ML IV SCH (12:00)
[2022-10-05] MEDS ORDERED: PPN PER PHARMACY IV NR ×11 (20:00)
[2022-10-06] VITALS (24 sets, daily range): BP systolic 92–118; BP diastolic 56–76
[2022-10-06] MEDS: ONDANSETRON HCL 4 MG/2 ML VIAL IV PRN ×5 (01:20→20:00)
[2022-10-06] MEDS: HYDROmorphone HCL 2 MG/ML VL/or syr IV PRN ×5 (01:20→20:04)
[2022-10-06 04:43] LABS: Potassium 4.8 mmol/L (3.5-5.1)
[2022-10-06 04:52] LABS: Albumin 2.4 g/dL (3.4-5.0); BUN/Creatinine Ratio 21.4 (10.0-20.0); Bilirubin, Total 0.9 mg/dL (0.2-1.0); Calcium 8.4 mg/dL (8.5-10.1); Magnesium 2.2 mg/dL (1.6-2.6); Phosphorus 3.1 mg/dL (2.5-4.90); Total Protein 6.4 g/dL (6.4-8.2)
[2022-10-06] MEDS: MAGIC MOUTHWASH 55 ML SUSP MT SCH ×4 (06:00→22:00)
[2022-10-06] MEDS: InsuLIN REG 1unit/0.01ml Soln (100units/ml) SC SCH ×3 (06:00→18:55)
[2022-10-06] MEDS: KETOROLAC TROMETH 30 MG/ML 1ML VIAL IV PRN ×2 (06:28→17:09)
[2022-10-06] MEDS: ACCU-CHEK COMFORT CURVE STRIP VI SCH ×3 (06:28→18:56)
[2022-10-06] MEDS: PANTOPRAZOLE 40 MG/10 ML VIAL INJ IV SCH ×2 (10:37→22:00)
[2022-10-06] MEDS: cefTRIAXone 1GM/50ML D5W 50 ML IV SCH (10:37)
[2022-10-06] MEDS: D5W/SOD CHL 0.45% 1,000 ML IV SCH (10:37)
[2022-10-06] MEDS ORDERED: PPN PER PHARMACY IV NR ×12 (20:00)
[2022-10-07] VITALS (8 sets, daily range): BP systolic 102–119; BP diastolic 50–75
[2022-10-07] MEDS: ONDANSETRON HCL 4 MG/2 ML VIAL IV PRN ×4 (00:10→13:30)
[2022-10-07] MEDS: HYDROmorphone HCL 2 MG/ML VL/or syr IV PRN ×4 (00:12→13:29)
[2022-10-07] MEDS: D5W/SOD CHL 0.45% 1,000 ML IV SCH ×2 (05:15→16:13)
[2022-10-07] MEDS: MAGIC MOUTHWASH 55 ML SUSP MT SCH ×4 (06:00→22:00)
[2022-10-07] MEDS: ACCU-CHEK COMFORT CURVE STRIP VI SCH ×4 (06:00→18:50)
[2022-10-07] MEDS: InsuLIN REG 1unit/0.01ml Soln (100units/ml) SC SCH ×4 (06:00→18:00)
[2022-10-07 06:21] LABS: Albumin 2.7 g/dL (3.4-5.0); Calcium 8.4 mg/dL (8.5-10.1); Magnesium 2.6 mg/dL (1.6-2.6); Potassium 4.1 mmol/L (3.5-5.1)
[2022-10-07 06:26] LABS: BUN/Creatinine Ratio 24.6 (10.0-20.0); Bilirubin, Total 1.1 mg/dL (0.2-1.0); Phosphorus 3.5 mg/dL (2.5-4.90); Total Protein 6.9 g/dL (6.4-8.2)
[2022-10-07] MEDS: KETOROLAC TROMETH 30 MG/ML 1ML VIAL IV PRN (07:05)
[2022-10-07] MEDS: cefTRIAXone 1GM/50ML D5W 50 ML IV SCH (09:04)
[2022-10-07] MEDS: PANTOPRAZOLE 40 MG/10 ML VIAL INJ IV SCH ×2 (09:05→23:07)
[2022-10-07] MEDS ORDERED: GASTROGRAFIN 120 ML SOL ONE (10:29)
[2022-10-07] MEDS: METOCLOPRAMIDE HCL 5MG/ml INJ 2ml VIAL IV PRN (18:51)
[2022-10-07] MEDS: LORazepam 2MG/ML-1ML VIAL IV PRN (19:03)
[2022-10-07] MEDS ORDERED: [UNRECOGNIZED DRUG - OTHER] IV NR ×12 (20:00)
[2022-10-07] MEDS ORDERED: SODIUM ACETATE IV NR ×12 (20:00)
[2022-10-07] MEDS ORDERED: SODIUM CHLORIDE IV NR ×12 (20:00)
[2022-10-07] MEDS ORDERED: FAT EMULSION IV NR ×12 (20:00)
[2022-10-08] MEDS: InsuLIN REG 1unit/0.01ml Soln (100units/ml) SC SCH ×3 (00:21→12:00)
[2022-10-08] MEDS: ACCU-CHEK COMFORT CURVE STRIP VI SCH ×3 (00:22→12:06)
[2022-10-08] MEDS: MAGIC MOUTHWASH 55 ML SUSP MT SCH ×4 (06:00→22:00)
[2022-10-08 06:45] LABS: Potassium 4.6 mmol/L (3.5-5.1)
[2022-10-08 06:54] LABS: BUN/Creatinine Ratio 27.6 (10.0-20.0); Bilirubin, Total 1.2 mg/dL (0.2-1.0); Calcium 8.9 mg/dL (8.5-10.1); Magnesium 2.6 mg/dL (1.6-2.6); Phosphorus 3.5 mg/dL (2.5-4.90); Total Protein 7.2 g/dL (6.4-8.2)
[2022-10-08] MEDS: LORazepam 2MG/ML-1ML VIAL IV PRN (08:43)
[2022-10-08] MEDS: PANTOPRAZOLE 40 MG/10 ML VIAL INJ IV SCH ×2 (08:43→21:43)
[2022-10-08] MEDS: cefTRIAXone 1GM/50ML D5W 50 ML IV SCH (08:44)
[2022-10-08 09:00] VITALS: BP 99/59
[2022-10-08] MEDS ORDERED: GASTROGRAFIN 120 ML SOL ONE (09:01)
[2022-10-08] MEDS ORDERED: VENLAFAXINE HCL 37.5MG TABLET PO ONE (12:00)
[2022-10-08 13:00] VITALS: BP 90/69
[2022-10-08] MEDS: METOCLOPRAMIDE HCL 5MG/ml INJ 2ml VIAL IV SCH ×2 (14:00→21:43)
[2022-10-08] MEDS: METOCLOPRAMIDE HCL 5MG/ml INJ 2ml VIAL IV PRN (14:47)
[2022-10-08] MEDS: HYDROmorphone HCL 2 MG/ML VL/or syr IV PRN ×2 (14:48→21:49)
[2022-10-08 16:58] VITALS: BP 121/72
[2022-10-08] MEDS ORDERED: PPN PER PHARMACY IV NR ×11 (20:00)
[2022-10-08] MEDS ORDERED: ACETAMINOPHEN 325 MG TAB PO PRN (21:00)
[2022-10-08] MEDS: D5W/SOD CHL 0.45% 1,000 ML IV SCH (21:15)
[2022-10-08 22:00] VITALS: BP 139/72
[2022-10-08] MEDS: VENLAFAXINE HCL 37.5MG TABLET PO SCH (22:54)
[2022-10-09 05:00] VITALS: BP 94/49
[2022-10-09] MEDS: MAGIC MOUTHWASH 55 ML SUSP MT SCH (06:00)
[2022-10-09] MEDS: METOCLOPRAMIDE HCL 5MG/ml INJ 2ml VIAL IV SCH (06:22)
[2022-10-09] MEDS: D5W/SOD CHL 0.45% 1,000 ML IV SCH (06:26)
[2022-10-09] MEDS: HYDROmorphone HCL 2 MG/ML VL/or syr IV PRN ×3 (06:35→19:52)
[2022-10-09 06:59] LABS: Basophils # (auto) 0.1 10 ^3/uL (0-0.2); Eosinophils # (auto) 0.2 10 ^3/uL (0-0.8)
[2022-10-09 07:01] LABS: Basophils % (auto) 0.9 % (0.0-2.0); Hematocrit 36.9 % (36.0-46.0); Hemoglobin 12.4 g/dL (12.2-16.2); Lymphocytes # (auto) 1.3 10 ^3/uL (0.4-5.4); Lymphocytes % (auto) 18.6 % (10.0-50.0); Mean Corpuscular Hemoglobin 31.2 pg (28.0-32.0); Mean Corpuscular Hgb Conc. 33.7 g/dL (32.0-36.0); Mean Corpuscular Volume 92.4 fL (80.0-100.0); Monocytes # (auto) 0.7 10 ^3/uL (0-1.3); Monocytes % (auto) 9.2 % (0.0-12.0); Neutrophils # (auto) 4.9 10 ^3/uL (1.6-8.6); Neutrophils % (auto) 68.3 % (37.0-80.0); Red Blood Cells 3.99 10^6/uL (4.0-5.20); Red Cell Distribution Width 12.2 % (11.8-14.3); White Blood Cell 7.1 10^3/uL (4.4-10.8)
[2022-10-09 07:10] LABS: Albumin 2.9 g/dL (3.4-5.0); Calcium 8.7 mg/dL (8.5-10.1); Potassium 3.9 mmol/L (3.5-5.1)
[2022-10-09 07:14] LABS: BUN/Creatinine Ratio 29.4 (10.0-20.0); Bilirubin, Total 0.7 mg/dL (0.2-1.0); Total Protein 6.9 g/dL (6.4-8.2)
[2022-10-09 09:00] VITALS: BP 110/69
[2022-10-09] MEDS: cefTRIAXone 1GM/50ML D5W 50 ML IV SCH (09:04)
[2022-10-09] MEDS ORDERED: SUMAtriptan SUCCINATE 25 MG TAB PO PRN (11:15)
[2022-10-09] MEDS ORDERED: traMADol HCL 50 MG TAB PO PRN (11:15)
[2022-10-09 13:00] VITALS: BP 115/72
[2022-10-09] MEDS: METOCLOPRAMIDE HCL 5MG/ml INJ 2ml VIAL IV PRN ×2 (13:01→19:50)
[2022-10-09] MEDS: VENLAFAXINE HCL 37.5MG TABLET PO SCH ×2 (13:01→21:27)
[2022-10-09] MEDS: CEPHALEXIN 250 MG CAP PO SCH ×2 (13:11→21:27)
[2022-10-09 16:42] VITALS: BP 106/62
[2022-10-09 22:00] VITALS: BP 108/64
[2022-10-10 06:44] LABS: Albumin 2.7 g/dL (3.4-5.0); BUN/Creatinine Ratio 17.2 (10.0-20.0); Calcium 8.6 mg/dL (8.5-10.1)
[2022-10-10 06:49] LABS: Bilirubin, Total 0.8 mg/dL (0.2-1.0); Total Protein 6.7 g/dL (6.4-8.2)
[2022-10-10] MEDS: CEPHALEXIN 250 MG CAP PO SCH ×2 (06:52→14:00)
[2022-10-10 07:15] LABS: Potassium 4.5 mmol/L (3.5-5.1)
[2022-10-10 09:00] VITALS: BP 101/67
[2022-10-10] MEDS: METOCLOPRAMIDE HCL 5MG/ml INJ 2ml VIAL IV PRN (09:18)
[2022-10-10] MEDS: HYDROmorphone HCL 2 MG/ML VL/or syr IV PRN (09:19)
[2022-10-10] MEDS ORDERED: PANTOPRAZOLE 40 MG TAB PO SCH (10:00)
[2022-10-10] MEDS: VENLAFAXINE HCL 37.5MG TABLET PO SCH (10:52)
[2022-10-10] MEDS ORDERED: DOCU-94 PO (11:53)
[2022-10-10] MEDS ORDERED: CEPH250C PO (11:53)
[2022-10-10] MEDS ORDERED: TRAM50TA2 PO (11:53)
[2022-10-10 13:00] VITALS: BP 107/71
== END 2022-10-10 14:10 | disposition home or self-care (01) | DRG 328 ==
LOC: SUR 06:23 → OVERFLOW 11:57 → CENTRAL 12:47 → EAST 10-04 22:54 → DOU IN ICU 10-05 00:10 → WEST WING 10-07 22:03
PROVIDERS: ADMIT Surgery; ATTEND Internal Medicine
PROC: 0DQ70ZZ Repair Stomach, Pylorus, Open Approach (ICD-10-PCS; principal; 2022-09-25 08:38)
PROC: 0DB70ZZ Excision of Stomach, Pylorus, Open Approach (ICD-10-PCS; 2022-10-02)
PROC: 0D160ZA Bypass Stomach to Jejunum, Open Approach (ICD-10-PCS; 2022-10-02)
PROC: 05HB33Z Insertion of Infusion Device into Right Basilic Vein, Percutaneous Approach (ICD-10-PCS; 2022-10-02)
PROC: B54MZZA Ultrasonography of Right Upper Extremity Veins, Guidance (ICD-10-PCS; 2022-10-02)
PROC: 05HA33Z Insertion of Infusion Device into Left Brachial Vein, Percutaneous Approach (ICD-10-PCS; 2022-10-06)
PROC: B54NZZA Ultrasonography of Left Upper Extremity Veins, Guidance (ICD-10-PCS; 2022-10-06)
DX: K31.1 Adult hypertrophic pyloric stenosis (principal); E66.9 Obesity, unspecified; E88.09 Other disorders of plasma-protein metabolism, not elsewhere classified; F32.A Depression, unspecified; G43.909 Migraine, unspecified, not intractable, without status migrainosus; K31.84 Gastroparesis; F41.9 Anxiety disorder, unspecified; K76.0 Fatty (change of) liver, not elsewhere classified; E87.6 Hypokalemia; Z68.37 Body mass index [BMI] 37.0-37.9, adult; Z88.8 Allergy status to other drugs, medicaments and biological substances
CPT/HCPCS: 36415; 71045; 74018; 74248; 76705; 80048; 80053; 81001; 81025; 82962; 83735; 84100; 84132; 84478; 85025; 85610; 85730; 86850; 86900; 86901; 87081; 97110; 97116; 97163; 97530; C9113; G0378; J0330; J0690; J0696; J1100; J1815; J1885; J2250; J2405; J2704; J3480; J3490; J7060; J7131

== ENCOUNTER 2022-10-18 22:42 | Inpatient (IN) | payer BC ==
[~2022-10-18] VITALS: Ht 157.5 cm; Wt 64.5 kg
[~2022-10-18 22:42] MED LIST changes: +CEPH250C PO; +DOCU-94 PO; +TRAM50TA2 PO; +[UNRECOGNIZED DRUG - CODE] SC
[2022-10-18] MEDS ORDERED: SODIUM CHLORIDE 0.9% 1,000 ML IV ONE (23:00)
[2022-10-18] MEDS ORDERED: ONDANSETRON HCL 4 MG/2 ML VIAL IV ONE (23:15)
[2022-10-18] MEDS ORDERED: MORPHINE SULFATE 4 MG/ML SYR/VIAL IV ONE (23:15)
[2022-10-18] MEDS ORDERED: IOHEXOL 300 MG/ML 100ML BOTTLE IJ ONE (23:17)
[2022-10-18 23:31] LABS: Eosinophils # (auto) 0 10 ^3/uL (0-0.8); Eosinophils % (auto) 0.2 % (0.0-7.0); Lymphocytes # (auto) 4.5 10 ^3/uL (0.4-5.4); Mean Corpuscular Volume 91.4 fL (80.0-100.0); Nucleated Red Blood Cells % 0.2 %
[2022-10-18 23:33] LABS: Basophils # (auto) 0.1 10 ^3/uL (0-0.2); Basophils % (auto) 1.3 % (0.0-2.0); Hematocrit 46.2 % (36.0-46.0); Hemoglobin 15.5 g/dL (12.2-16.2); Mean Corpuscular Hemoglobin 30.7 pg (28.0-32.0); Mean Corpuscular Hgb Conc. 33.6 g/dL (32.0-36.0); Monocytes # (auto) 0.8 10 ^3/uL (0-1.3); Monocytes % (auto) 7.5 % (0.0-12.0); Red Blood Cells 5.05 10^6/uL (4.0-5.20); Red Cell Distribution Width 12.5 % (11.8-14.3); White Blood Cell 10.5 10^3/uL (4.4-10.8)
[2022-10-19 00:04] LABS: INR 1.14 (0.9-1.15); Partial Thromboplastin Time 24.5 SEC (24.5-34.5)
[2022-10-19 00:05] LABS: Alanine Aminotransferase 50 U/L (13-56); Albumin 4.5 g/dL (3.4-5.0); Anion Gap 27 (5-15); Aspartate Aminotransferase 27 U/L (15-37); Blood Urea Nitrogen 36 mg/dL (7-18); Calcium 10.6 mg/dL (8.5-10.1); Carbon Dioxide 19 mmol/L (21-32); Chloride 90 mmol/L (98-107); GFR African American 64 mL/min; GFR Non-African American 53 mL/min; Glucose 116 mg/dL (74-106); Lipase 391 U/L (73-393); Potassium 3.2 mmol/L (3.5-5.1); Sodium 136 mmol/L (136-145)
[2022-10-19 00:09] LABS: Alkaline Phosphatase 156 U/L (45-117); Lactic Acid w/Reflex 3.6 mmol/L (0.4-2.0); Total Protein 9.2 g/dL (6.4-8.2)
[2022-10-19 00:13] LABS: Beta HCG, Quantitative < 1 mlU/mL (1-3)
[2022-10-19] MEDS ORDERED: MORPHINE SULFATE 4 MG/ML SYR/VIAL IV ONE (00:30)
[2022-10-19] MEDS ORDERED: ONDANSETRON HCL 4 MG/2 ML VIAL IV ONE (00:30)
[2022-10-19 00:33] LABS: Blood Alcohol < 3.0 mg/dL (<10)
[2022-10-19] MEDS ORDERED: D5W/SOD CHL 0.45% 1,000 ML IV ONE (01:30)
[2022-10-19] MEDS ORDERED: LACTATED RINGER'S 2,000 ML IV ONE (01:30)
[2022-10-19] MEDS ORDERED: fentaNYL CITRATE 100 MCG/2 ML VL IV ONE (01:45)
[2022-10-19] MEDS ORDERED: LORazepam 2MG/ML-1ML VIAL IV ONE (02:00)
[2022-10-19] MEDS ORDERED: METOCLOPRAMIDE HCL 5MG/ml INJ 2ml VIAL IV ONE (02:00)
[2022-10-19] MEDS ORDERED: diphenhdrAMINE HCL 50 MG/1 ML VL IV ONE (02:00)
[2022-10-19 02:01] LABS: CRP High Sensitivity 2.81 mg/dL (< 0.3)
[2022-10-19] MEDS ORDERED: POTASSIUM CHL 20 Meq TABLET PO ONE (05:30)
[2022-10-19] MEDS ORDERED: ACETAMINOPHEN 325 MG TAB PO PRN (05:30)
[2022-10-19] MEDS ORDERED: DOCUSATE SOD 100 MG CAP PO PRN (05:30)
[2022-10-19] MEDS ORDERED: ONDANSETRON HCL 4 MG/2 ML VIAL IV PRN (05:30)
[2022-10-19] MEDS ORDERED: LORazepam 2MG/ML-1ML VIAL IV PRN (05:30)
[2022-10-19] MEDS ORDERED: MORPHINE SULFATE INJ 2 MG/ml SYRG IV PRN ×2 (05:30→07:00)
[2022-10-19] MEDS ORDERED: HYDROcodone-ACET 5/325MG TAB PO PRN (05:30)
[2022-10-19 06:44] LABS: Basophils # (auto) 0 10 ^3/uL (0-0.2); Basophils % (auto) 0.4 % (0.0-2.0); Eosinophils # (auto) 0 10 ^3/uL (0-0.8); Eosinophils % (auto) 0.1 % (0.0-7.0); Hematocrit 37.9 % (36.0-46.0); Hemoglobin 13.2 g/dL (12.2-16.2); Lymphocytes # (auto) 1.8 10 ^3/uL (0.4-5.4); Lymphocytes % (auto) 29.9 % (10.0-50.0); Mean Corpuscular Hemoglobin 31.4 pg (28.0-32.0); Mean Corpuscular Hgb Conc. 34.7 g/dL (32.0-36.0); Mean Corpuscular Volume 90.5 fL (80.0-100.0); Monocytes # (auto) 0.4 10 ^3/uL (0-1.3); Monocytes % (auto) 6.6 % (0.0-12.0); Neutrophils # (auto) 3.8 10 ^3/uL (1.6-8.6); Nucleated Red Blood Cells % 0.1 %; Red Blood Cells 4.19 10^6/uL (4.0-5.20); Red Cell Distribution Width 12.2 % (11.8-14.3); White Blood Cell 6.1 10^3/uL (4.4-10.8)
[2022-10-19] MEDS ORDERED: NITROGLYCERIN 0.4 MG SL TAB SL PRN (07:00)
[2022-10-19 07:04] LABS: Albumin 3.5 g/dL (3.4-5.0); Calcium 9.1 mg/dL (8.5-10.1); Potassium 3.3 mmol/L (3.5-5.1)
[2022-10-19 07:10] LABS: BUN/Creatinine Ratio 30.8 (10.0-20.0); Bilirubin, Total 0.7 mg/dL (0.2-1.0); Total Protein 7.7 g/dL (6.4-8.2)
[2022-10-19] MEDS: SODIUM CHLORIDE 0.9% 1,000 ML IV SCH ×2 (08:55→22:10)
[2022-10-19] MEDS ORDERED: POTASSIUM EFFERVESENT TAB 25 MEQ GT ONE (09:15)
[2022-10-19] MEDS: ASPirin 81 mg TAB PO SCH (09:45)
[2022-10-19] MEDS: ENOXAPARIN SOD 40 MG/0.4 ML SYRINGE SC SCH (09:45)
[2022-10-19] MEDS: FAMOTIDINE (10MG/ML) 2ML VL IV SCH ×2 (09:45→23:11)
[2022-10-19 10:30] VITALS: BP 99/62
[2022-10-19 13:00] VITALS: BP 97/60
[2022-10-19 17:00] VITALS: BP 107/79
[2022-10-19 21:11] LABS: Urine Amorphous Crystal FEW /hpf (None Seen); Urine Bacteria MOD /hpf (None Seen); Urine Blood Negative /uL (Negative); Urine Mucus FEW (None Seen); Urine Specific Gravity 1.033 (1.001-1.035); Urine WBC 26 /hpf (0 - 5)
[2022-10-19 21:46] LABS: Alcohol, Urine < 3.0 mg/dL (0-10); Amphetamine Screen, Urine NEGATIVE (NEGATIVE); Barbiturate Scree,Urine NEGATIVE (NEGATIVE); Benzodiazephine Screen, Urine NEGATIVE (NEGATIVE); Cannabinoid Screen, Urine POSITIVE (NEGATIVE); Cocaine Screen, Urine NEGATIVE (NEGATIVE); Opiate Scree,Urine NEGATIVE (NEGATIVE)
[2022-10-19 21:53] LABS: Phencyclidine Screen, Urine NEGATIVE (NEGATIVE)
[2022-10-19 22:00] VITALS: BP 106/63
[2022-10-20 03:13] LABS: Basophils # (auto) 0 10 ^3/uL (0-0.2); Basophils % (auto) 0.6 % (0.0-2.0); Eosinophils # (auto) 0.1 10 ^3/uL (0-0.8); Eosinophils % (auto) 2.1 % (0.0-7.0); Hematocrit 36.9 % (36.0-46.0); Hemoglobin 12.4 g/dL (12.2-16.2); Lymphocytes # (auto) 2.3 10 ^3/uL (0.4-5.4); Lymphocytes % (auto) 44.8 % (10.0-50.0); Mean Corpuscular Hemoglobin 30.2 pg (28.0-32.0); Mean Corpuscular Hgb Conc. 33.5 g/dL (32.0-36.0); Monocytes # (auto) 0.3 10 ^3/uL (0-1.3); Monocytes % (auto) 5.1 % (0.0-12.0); Neutrophils # (auto) 2.4 10 ^3/uL (1.6-8.6); Neutrophils % (auto) 47.4 % (37.0-80.0)
[2022-10-20 03:24] LABS: Albumin 3.2 g/dL (3.4-5.0); BUN/Creatinine Ratio 33.8 (10.0-20.0); Calcium 8.7 mg/dL (8.5-10.1)
[2022-10-20 03:36] LABS: Potassium 2.9 mmol/L (3.5-5.1)
[2022-10-20 03:54] LABS: Magnesium 2.3 mg/dL (1.6-2.6)
[2022-10-20 03:59] LABS: Bilirubin, Total 0.6 mg/dL (0.2-1.0); Total Protein 6.6 g/dL (6.4-8.2)
[2022-10-20] MEDS ORDERED: POTASSIUM CHL 20 Meq TABLET PO ONE (04:30)
[2022-10-20] MEDS ORDERED: SOD CHL 0.45% WITH 20MEQ KCL 1,000 ML IV SCH (04:30)
[2022-10-20] MEDS ORDERED: POTASSIUM CHL 20MEQ/100ML 100 ML IV ONE (04:45)
[2022-10-20] MEDS ORDERED: SOD CHL 0.45% WITH 20MEQ KCL 1,000 ML IV ONE (04:45)
[2022-10-20 05:00] VITALS: BP 99/60
[2022-10-20] MEDS ORDERED: POTASSIUM EFFERVESENT TAB 25 MEQ GT ONE (07:30)
[2022-10-20] MEDS ORDERED: LORA-1105 PO ×3 (08:11→08:21)
[2022-10-20] MEDS: ASPirin 81 mg TAB PO SCH (08:31)
[2022-10-20] MEDS: ENOXAPARIN SOD 40 MG/0.4 ML SYRINGE SC SCH (08:33)
[2022-10-20 08:49] LABS: BUN/Creatinine Ratio 35.8 (10.0-20.0); Potassium 3.8 mmol/L (3.5-5.1)
[2022-10-20 09:00] VITALS: BP 109/75
[2022-10-20] MEDS: FAMOTIDINE (10MG/ML) 2ML VL IV SCH (10:00)
[2022-10-20 10:23] VITALS: BP 109/75
== END 2022-10-20 11:35 | disposition home or self-care (01) | DRG 392 ==
LOC: ER 22:42 → EEVIPCON 22:42 → TELE 10-19 06:50 → TELE-CENTR 10-19 09:17
PROVIDERS: ADMIT Nurse Practitioner Family; ATTEND Nurse Practitioner Family
DX: K31.84 Gastroparesis (principal); E87.20 Acidosis, unspecified; N17.9 Acute kidney failure, unspecified; D75.839 Thrombocytosis, unspecified; E66.3 Overweight; E83.52 Hypercalcemia; E86.0 Dehydration; E87.6 Hypokalemia; E87.8 Other disorders of electrolyte and fluid balance, not elsewhere classified; F32.A Depression, unspecified; K21.9 Gastro-esophageal reflux disease without esophagitis; R91.1 Solitary pulmonary nodule; Z88.8 Allergy status to other drugs, medicaments and biological substances; Z68.26 Body mass index [BMI] 26.0-26.9, adult; Z88.3 Allergy status to other anti-infective agents; K31.1 Adult hypertrophic pyloric stenosis
CPT/HCPCS: 36415; 80048; 80053; 80307; 80320; 81001; 82010; 82553; 83605; 83690; 83735; 83880; 83930; 84132; 84443; 84484; 84702; 85025; 85610; 85652; 85730; 86141; 96361; 96374; 96375; 96376; 99291; G0378; J2405; J3480; J3490

== ENCOUNTER 2022-10-25 08:20 | Inpatient (IN) | payer BC ==
[~2022-10-25] VITALS: Ht 157.5 cm; Wt 78.5 kg
[~2022-10-25 08:20] MED LIST changes: -CEPH250C PO; +LORA-1105 PO; -TRAM50TA2 PO; -[UNRECOGNIZED DRUG - CODE] SC
[2022-10-25 08:47] VITALS: PULSE 106; RESP 22; O2SAT 97
[2022-10-25 09:08] LABS: Basophils # (auto) 0.1 10 ^3/uL (0-0.2); Basophils % (auto) 0.8 % (0.0-2.0); Eosinophils # (auto) 0 10 ^3/uL (0-0.8); Eosinophils % (auto) 0.3 % (0.0-7.0); Hematocrit 47.6 % (36.0-46.0); Hemoglobin 16.2 g/dL (12.2-16.2); Lymphocytes # (auto) 3.3 10 ^3/uL (0.4-5.4); Lymphocytes % (auto) 39.9 % (10.0-50.0); Mean Corpuscular Hemoglobin 30.5 pg (28.0-32.0); Mean Corpuscular Volume 89.9 fL (80.0-100.0); Monocytes # (auto) 0.9 10 ^3/uL (0-1.3); Monocytes % (auto) 10.8 % (0.0-12.0); Neutrophils % (auto) 48.2 % (37.0-80.0); Nucleated Red Blood Cells % 0.3 %; Red Cell Distribution Width 12.3 % (11.8-14.3); White Blood Cell 8.3 10^3/uL (4.4-10.8)
[2022-10-25 09:25] LABS: Albumin 4.6 g/dL (3.4-5.0); Calcium 10.7 mg/dL (8.5-10.1)
[2022-10-25 09:27] LABS: BUN/Creatinine Ratio 19.8 (10.0-20.0); Bilirubin, Total 1.1 mg/dL (0.2-1.0); Total Protein 9.5 g/dL (6.4-8.2)
[2022-10-25 09:30] LABS: Potassium 2.7 mmol/L (3.5-5.1)
[2022-10-25] MEDS ORDERED: ONDANSETRON HCL 4 MG/2 ML VIAL IV ONE ×2 (10:15)
[2022-10-25] MEDS ORDERED: LORazepam MDV 2MG/ML 50 MG in SODIUM CHL 0.9% 25 ML IV ONE (10:15)
[2022-10-25] MEDS ORDERED: SODIUM CHLORIDE 0.9% 1,000 ML IVB ONE (10:15)
[2022-10-25] MEDS ORDERED: PANTOPRAZOLE 80 MG in SODIUM CHL 0.9% 100 ML IV ONE (10:15)
[2022-10-25] MEDS ORDERED: METOCLOPRAMIDE HCL 5MG/ml INJ 2ml VIAL IV ONE (10:15)
[2022-10-25 10:28] LABS: Magnesium 2.6 mg/dL (1.6-2.6)
[2022-10-25] MEDS ORDERED: LORazepam 2MG/ML-1ML VIAL IV ONE (10:30)
[2022-10-25 10:32] LABS: INR 1.21 (0.9-1.15); Partial Thromboplastin Time 26.2 SEC (24.5-34.5); Prothrombin Time 12.5 sec (9.3-11.8)
[2022-10-25] MEDS ORDERED: HYDROmorphone HCL 2 MG/ML VL/or syr IV PRN (11:30)
[2022-10-25] MEDS ORDERED: DOCUSATE SOD 100 MG CAP PO PRN (11:30)
[2022-10-25] MEDS: POTASSIUM CHL 20MEQ/100ML 100 ML IV SCH ×2 (11:30→13:30)
[2022-10-25] MEDS ORDERED: DEXTROSE (50%) 50ML SYRG IV PRN (11:45)
[2022-10-25] MEDS: SUCRALFATE 1 GM TAB PO SCH ×3 (13:05→22:03)
[2022-10-25] MEDS: DICYCLOMINE HCL (10MG/ML) 2 ML AMPULE IM SCH ×2 (13:09→18:32)
[2022-10-25] MEDS: InsuLIN REG 1unit/0.01ml Soln (100units/ml) SC SCH ×2 (13:18→18:00)
[2022-10-25] MEDS: ACCU-CHEK COMFORT CURVE STRIP VI SCH ×2 (13:18→18:02)
[2022-10-25] MEDS: SOD CHL 0.9%/ KCL 20MEQ 1,000 ML IV SCH ×2 (16:18→20:05)
[2022-10-25 17:37] VITALS: BP 113/63; PULSE 105; RESP 16; TEMP 97.8; O2SAT 100
[2022-10-25 17:53] VITALS: BP 113/63; PULSE 105; RESP 16; TEMP 97.8; O2SAT 100
[2022-10-25 20:00] VITALS: PULSE 82; PULSE 87; RESP 16
[2022-10-25 22:00] VITALS: BP 102/57; PULSE 83; RESP 19; TEMP 98.6; O2SAT 96
[2022-10-25] MEDS: PANTOPRAZOLE 40 MG/10 ML VIAL INJ IV SCH (22:03)
[2022-10-26] VITALS (7 sets, daily range): BP systolic 89–101; BP diastolic 46–60; PULSE 70–101; RESP 16–22; TEMP 97.7–98.5; O2SAT 96–100
[2022-10-26] MEDS: DICYCLOMINE HCL (10MG/ML) 2 ML AMPULE IM SCH ×5 (01:28→22:42)
[2022-10-26] MEDS: ACCU-CHEK COMFORT CURVE STRIP VI SCH ×5 (01:29→23:07)
[2022-10-26] MEDS: SOD CHL 0.9%/ KCL 20MEQ 1,000 ML IV SCH ×3 (01:36→23:06)
[2022-10-26] MEDS: LORazepam 2MG/ML-1ML VIAL IV PRN ×3 (02:01→22:42)
[2022-10-26 03:00] LABS: Urine Bacteria FEW /hpf (None Seen); Urine Blood Negative /uL (Negative); Urine Clarity HAZY (Clear); Urine Color Yellow (Yellow); Urine Hyaline Cast MANY /lpf (0 - 2); Urine Mucus FEW (None Seen); Urine Protein, UAD 1+ (Negative); Urine Specific Gravity 1.028 (1.001-1.035); Urine WBC 12 /hpf (0 - 5); Urine pH 5.5 (5.0-8.0)
[2022-10-26 03:17] LABS: Creatinine, Urine 297 mg/dL (30.0-125.0); Sodium Urine 55 mmol/L (40-220)
[2022-10-26 04:35] LABS: Basophils # (auto) 0 10 ^3/uL (0-0.2); Basophils % (auto) 0.3 % (0.0-2.0); Eosinophils # (auto) 0.1 10 ^3/uL (0-0.8); Eosinophils % (auto) 0.9 % (0.0-7.0); Hematocrit 34.8 % (36.0-46.0); Hemoglobin 11.9 g/dL (12.2-16.2); Lymphocytes # (auto) 1.9 10 ^3/uL (0.4-5.4); Lymphocytes % (auto) 30.7 % (10.0-50.0); Mean Corpuscular Hemoglobin 30.8 pg (28.0-32.0); Mean Corpuscular Hgb Conc. 34.1 g/dL (32.0-36.0); Mean Corpuscular Volume 90.3 fL (80.0-100.0); Monocytes # (auto) 0.5 10 ^3/uL (0-1.3); Monocytes % (auto) 8.6 % (0.0-12.0); Neutrophils # (auto) 3.6 10 ^3/uL (1.6-8.6); Neutrophils % (auto) 59.5 % (37.0-80.0); Red Blood Cells 3.85 10^6/uL (4.0-5.20); Red Cell Distribution Width 12.1 % (11.8-14.3); White Blood Cell 6.1 10^3/uL (4.4-10.8)
[2022-10-26 04:44] LABS: Albumin 3.1 g/dL (3.4-5.0); Calcium 8.3 mg/dL (8.5-10.1)
[2022-10-26 04:48] LABS: BUN/Creatinine Ratio 37.5 (10.0-20.0); Total Protein 6.2 g/dL (6.4-8.2)
[2022-10-26 04:57] LABS: Potassium 2.8 mmol/L (3.5-5.1)
[2022-10-26] MEDS ORDERED: POTASSIUM CHL 20 Meq TABLET PO ONE (05:15)
[2022-10-26] MEDS: InsuLIN REG 1unit/0.01ml Soln (100units/ml) SC SCH ×5 (06:00→23:07)
[2022-10-26] MEDS: SUCRALFATE 1 GM TAB PO SCH ×4 (06:11→22:41)
[2022-10-26] MEDS ORDERED: VENLAFAXINE HCL 37.5mg XR cap PO SCH (10:00)
[2022-10-26] MEDS: PANTOPRAZOLE 40 MG/10 ML VIAL INJ IV SCH ×2 (10:50→22:41)
[2022-10-26] MEDS: POTASSIUM CHL 20MEQ/100ML 100 ML IV SCH ×2 (12:12→18:24)
[2022-10-26] MEDS: ONDANSETRON HCL 4 MG/2 ML VIAL IV PRN (18:57)
[2022-10-26] MEDS: METOCLOPRAMIDE HCL 5MG/ml INJ 2ml VIAL IV SCH (22:41)
[2022-10-27] VITALS (7 sets, daily range): BP systolic 86–100; BP diastolic 53–62; PULSE 57–68; RESP 17–20; TEMP 97–98.3; O2SAT 96–100
[2022-10-27] MEDS: SOD CHL 0.9%/ KCL 20MEQ 1,000 ML IV SCH ×3 (03:00→21:25)
[2022-10-27] MEDS: InsuLIN REG 1unit/0.01ml Soln (100units/ml) SC SCH ×3 (06:00→17:08)
[2022-10-27] MEDS: SUCRALFATE 1 GM TAB PO SCH (06:03)
[2022-10-27] MEDS: METOCLOPRAMIDE HCL 5MG/ml INJ 2ml VIAL IV SCH ×3 (06:03→21:27)
[2022-10-27] MEDS: DICYCLOMINE HCL (10MG/ML) 2 ML AMPULE IM SCH ×3 (06:04→18:15)
[2022-10-27] MEDS: ACCU-CHEK COMFORT CURVE STRIP VI SCH ×3 (06:04→17:06)
[2022-10-27 06:21] LABS: Albumin 2.5 g/dL (3.4-5.0); Calcium 7.7 mg/dL (8.5-10.1); Magnesium 2.2 mg/dL (1.6-2.6)
[2022-10-27 06:25] LABS: BUN/Creatinine Ratio 39.3 (10.0-20.0); Basophils # (auto) 0 10 ^3/uL (0-0.2); Basophils % (auto) 0.5 % (0.0-2.0); Eosinophils # (auto) 0.1 10 ^3/uL (0-0.8); Hematocrit 31.2 % (36.0-46.0); Hemoglobin 10.6 g/dL (12.2-16.2); Lymphocytes # (auto) 1.9 10 ^3/uL (0.4-5.4); Lymphocytes % (auto) 40.7 % (10.0-50.0); Mean Corpuscular Hemoglobin 30.8 pg (28.0-32.0); Mean Corpuscular Hgb Conc. 34.1 g/dL (32.0-36.0); Mean Corpuscular Volume 90.5 fL (80.0-100.0); Monocytes # (auto) 0.3 10 ^3/uL (0-1.3); Monocytes % (auto) 6.8 % (0.0-12.0); Neutrophils # (auto) 2.3 10 ^3/uL (1.6-8.6); Nucleated Red Blood Cells % 0.1 %; Red Blood Cells 3.45 10^6/uL (4.0-5.20); Total Protein 5.1 g/dL (6.4-8.2); White Blood Cell 4.6 10^3/uL (4.4-10.8)
[2022-10-27] MEDS: PANTOPRAZOLE 40 MG/10 ML VIAL INJ IV SCH ×2 (10:51→21:27)
[2022-10-27] MEDS: SUCRALFATE 1 GM/10 ML ORAL SUSP PO SCH ×3 (10:51→21:26)
[2022-10-27] MEDS: LORazepam 2MG/ML-1ML VIAL IV PRN (22:08)
[2022-10-28] MEDS: DICYCLOMINE HCL (10MG/ML) 2 ML AMPULE IM SCH ×2 (00:14→05:57)
[2022-10-28] MEDS: ACCU-CHEK COMFORT CURVE STRIP VI SCH ×5 (00:14→23:57)
[2022-10-28 05:34] VITALS: BP 96/61; PULSE 98; RESP 18; TEMP 97.7; O2SAT 89
[2022-10-28] MEDS: METOCLOPRAMIDE HCL 5MG/ml INJ 2ml VIAL IV SCH ×3 (05:57→21:28)
[2022-10-28] MEDS: SUCRALFATE 1 GM/10 ML ORAL SUSP PO SCH ×4 (05:57→21:28)
[2022-10-28] MEDS: InsuLIN REG 1unit/0.01ml Soln (100units/ml) SC SCH ×5 (06:00→23:57)
[2022-10-28] MEDS: SOD CHL 0.9%/ KCL 20MEQ 1,000 ML IV SCH (06:15)
[2022-10-28 06:16] LABS: Potassium 3.9 mmol/L (3.5-5.1)
[2022-10-28 06:23] LABS: BUN/Creatinine Ratio 26.3 (10.0-20.0); Calcium 8.4 mg/dL (8.5-10.1)
[2022-10-28 08:00] VITALS: PULSE 67
[2022-10-28 08:49] VITALS: BP 88/53; PULSE 68; RESP 16; TEMP 97.8; O2SAT 98
[2022-10-28] MEDS: PANTOPRAZOLE 40 MG/10 ML VIAL INJ IV SCH ×2 (09:07→21:28)
[2022-10-28] MEDS ORDERED: HYDROmorphone HCL 2 MG/ML VL/or syr IV PRN (10:00)
[2022-10-28] MEDS: D5W/SOD CHL 0.45%/KCL 20MEQ 1,000 ML IV SCH ×2 (10:18→20:46)
[2022-10-28] MEDS ORDERED: GASTROGRAFIN 120 ML SOL ONE (10:50)
[2022-10-28 13:00] VITALS: BP 105/73; PULSE 75; RESP 14; TEMP 97.2; O2SAT 97
[2022-10-28 17:00] VITALS: BP 98/69; PULSE 71; RESP 16; TEMP 98.2; O2SAT 95
[2022-10-28] MEDS: ONDANSETRON HCL 4 MG/2 ML VIAL IV PRN (17:45)
[2022-10-28] MEDS: LORazepam 2MG/ML-1ML VIAL IV PRN (21:28)
[2022-10-28 22:00] VITALS: BP 96/68; PULSE 60; RESP 18; TEMP 98.4; O2SAT 100
[2022-10-29 05:00] VITALS: BP 90/54; PULSE 68; RESP 18; TEMP 97.9; O2SAT 100
[2022-10-29] MEDS: METOCLOPRAMIDE HCL 5MG/ml INJ 2ml VIAL IV SCH ×3 (05:26→22:11)
[2022-10-29] MEDS ORDERED: SUMAtriptan SUCCINATE 25 MG TAB PO ONE (05:30)
[2022-10-29] MEDS: InsuLIN REG 1unit/0.01ml Soln (100units/ml) SC SCH ×4 (05:33→23:43)
[2022-10-29] MEDS: ACCU-CHEK COMFORT CURVE STRIP VI SCH ×4 (05:33→23:43)
[2022-10-29 05:45] LABS: Basophils # (auto) 0 10 ^3/uL (0-0.2); Basophils % (auto) 0.4 % (0.0-2.0); Eosinophils # (auto) 0.1 10 ^3/uL (0-0.8); Eosinophils % (auto) 3.8 % (0.0-7.0); Hematocrit 34.2 % (36.0-46.0); Hemoglobin 11.7 g/dL (12.2-16.2); Lymphocytes # (auto) 1.5 10 ^3/uL (0.4-5.4); Lymphocytes % (auto) 39.6 % (10.0-50.0); Mean Corpuscular Hemoglobin 30.4 pg (28.0-32.0); Mean Corpuscular Hgb Conc. 34.1 g/dL (32.0-36.0); Mean Corpuscular Volume 89.2 fL (80.0-100.0); Monocytes # (auto) 0.4 10 ^3/uL (0-1.3); Monocytes % (auto) 9.3 % (0.0-12.0); Neutrophils # (auto) 1.8 10 ^3/uL (1.6-8.6); Neutrophils % (auto) 46.9 % (37.0-80.0); Nucleated Red Blood Cells % 0.2 %; Red Blood Cells 3.84 10^6/uL (4.0-5.20); Red Cell Distribution Width 12.2 % (11.8-14.3); White Blood Cell 3.8 10^3/uL (4.4-10.8)
[2022-10-29] MEDS: D5W/SOD CHL 0.45%/KCL 20MEQ 1,000 ML IV SCH ×2 (05:49→18:04)
[2022-10-29] MEDS: SUCRALFATE 1 GM/10 ML ORAL SUSP PO SCH ×4 (05:49→22:15)
[2022-10-29 05:56] LABS: Calcium 7.9 mg/dL (8.5-10.1); Potassium 3.5 mmol/L (3.5-5.1)
[2022-10-29 05:57] LABS: BUN/Creatinine Ratio 6.3 (10.0-20.0)
[2022-10-29 08:00] VITALS: PULSE 86; RESP 18; O2SAT 99
[2022-10-29] MEDS: PANTOPRAZOLE 40 MG/10 ML VIAL INJ IV SCH ×2 (10:42→22:11)
[2022-10-29 13:50] VITALS: BP 106/72; PULSE 83; RESP 17; TEMP 97.9; O2SAT 100
[2022-10-29] MEDS: LORazepam 2MG/ML-1ML VIAL IV PRN ×2 (13:58→22:15)
[2022-10-29 16:28] VITALS: BP 100/61; PULSE 68; RESP 18; TEMP 97.8; O2SAT 96
[2022-10-29 21:44] VITALS: BP 120/77; PULSE 91; RESP 18; TEMP 98.9; O2SAT 100
[2022-10-30] MEDS: D5W/SOD CHL 0.45%/KCL 20MEQ 1,000 ML IV SCH ×2 (04:06→12:00)
[2022-10-30 04:50] VITALS: BP 97/65; PULSE 73; RESP 18; TEMP 97.8; O2SAT 98
[2022-10-30] MEDS: SUCRALFATE 1 GM/10 ML ORAL SUSP PO SCH ×2 (06:29→11:47)
[2022-10-30] MEDS: InsuLIN REG 1unit/0.01ml Soln (100units/ml) SC SCH ×2 (06:29→11:51)
[2022-10-30] MEDS: METOCLOPRAMIDE HCL 5MG/ml INJ 2ml VIAL IV SCH ×2 (06:29→14:32)
[2022-10-30] MEDS: ACCU-CHEK COMFORT CURVE STRIP VI SCH ×2 (06:29→11:51)
[2022-10-30 08:00] VITALS: BP 92/63; PULSE 66; RESP 18; TEMP 98; O2SAT 94
[2022-10-30 09:18] VITALS: BP 92/63; PULSE 64; RESP 16; TEMP 98.1; O2SAT 94
[2022-10-30] MEDS: PANTOPRAZOLE 40 MG/10 ML VIAL INJ IV SCH (09:55)
[2022-10-30] MEDS ORDERED: SUCR1SUS26 PO (10:58)
[2022-10-30] MEDS ORDERED: PANT40TA2 PO (10:58)
[2022-10-30] MEDS ORDERED: METO5TAB67 PO (10:58)
[2022-10-30 11:59] VITALS: BP 113/74; PULSE 94; RESP 18; TEMP 97.9; O2SAT 99
[2022-10-30 13:28] VITALS: PULSE 76; RESP 18; TEMP 36.6; O2SAT 96
== END 2022-10-30 15:25 | disposition home or self-care (01) | DRG 393 ==
LOC: EEVIPCON 08:20 → ER 08:20 → WEST WING 11:19 → OVERFLOW 14:01 → CENTRAL 16:47 → TELE-CENTR 17:48 → CENTRAL 10-28 12:44
PROVIDERS: ADMIT Internal Medicine; ATTEND Internal Medicine
PROC: 0D9670Z Drainage of Stomach with Drainage Device, Via Natural or Artificial Opening (ICD-10-PCS; principal; 2022-10-25)
DX: K95.89 Other complications of other bariatric procedure (principal); N17.0 Acute kidney failure with tubular necrosis; K31.1 Adult hypertrophic pyloric stenosis; E44.1 Mild protein-calorie malnutrition; K91.30 Postprocedural intestinal obstruction, unspecified as to partial versus complete; K31.84 Gastroparesis; E86.0 Dehydration; E87.6 Hypokalemia; R73.9 Hyperglycemia, unspecified; K21.9 Gastro-esophageal reflux disease without esophagitis; K25.7 Chronic gastric ulcer without hemorrhage or perforation; E66.9 Obesity, unspecified; F41.9 Anxiety disorder, unspecified; Z79.899 Other long term (current) drug therapy; Z98.84 Bariatric surgery status; Z68.31 Body mass index [BMI] 31.0-31.9, adult; Z90.3 Acquired absence of stomach [part of]; Z80.0 Family history of malignant neoplasm of digestive organs; Z82.49 Family history of ischemic heart disease and other diseases of the circulatory system; Z83.3 Family history of diabetes mellitus; Z88.3 Allergy status to other anti-infective agents
CPT/HCPCS: 36415; 71045; 74018; 74176; 74246; 80048; 80053; 81001; 81025; 82570; 82962; 83690; 83735; 84132; 84300; 84702; 85025; 85610; 85730; 87081; 96365; 96375; C9113; G0378; J2405; J3480

== ENCOUNTER → 2022-11-11 | Outpatient (CLI) | payer BC ==
[~2022-11-11] MED LIST changes: +METO5TAB67 PO; +PANT40TA2 PO; +SUCR1SUS26 PO
[2022-11-11 11:58] LABS: Magnesium 2.5 mg/dL (1.6-2.6); Potassium 4.7 mmol/L (3.5-5.1)
== END | disposition home or self-care (01) ==
LOC: LAB 11:14
PROVIDERS: ATTEND Internal Medicine
DX: E87.6 Hypokalemia (principal)
CPT/HCPCS: 36415; 83735; 84132